=== PATIENT | female | born 1970 | race African-American/Black ===

== ENCOUNTER 2025-01-20 15:33 | Outpatient (REF) | payer OTHER, SELFPAY ==
--- OUTSIDE RECORDS SUMMARY | 2025-01-20 18:31 | XMS_ITS | Clinical Summary ---
Author Organization [facility] Address [address] [place] [address] Care Team Providers Care Grappler Name Role Phone Sameer Rowland MD Primary Care Provider Mina sampson Allergies No known active allergies Medications Medication Sig Dispensed Refills Start Date End Date Status traZODone (DESYREL) 50 MG tablet Take 0.5 tablets (25 mg total) by mouth every night at bedtime. 90 tablet 3 05/27/2018 Active ibuprofen (ADVIL,MOTRIN) 600 MG tabletIndications:Cervi robinson disc disorder with radiculopathy of cervicothoracic region Take 1 tablet (600 mg total) by mouth every 6 (six) hours as needed for pain. 270 tablet 3 09/30/2018 Active predniSONE (DELTASONE) tablet 10 mg Take 10 mg by mouth 2 (two) times a day. 0 Active Fluticasone-Salmeterol (ADVAIR DISKUS IN) Inhale into the lungs. 0 Active azithromycin (ZITHROMAX) 250 MG tablet Take 1 tablet (250 mg total) by mouth daily. 6 tablet 0 11/27/2018 Active oxyCODONE (ROXICODONE) 5 MG immediate release tablet Take 1 tablet (5 mg total) by mouth every 12 (twelve) hours as needed for pain. 60 tablet 0 12/05/2019 Active Active Problems Problem Noted Date Diagnosed Date Chronic bilateral low back pain with sciatica Cervical disc disorder with radiculopathy of cervicothoracic region 06/04/2017 Social History Tobacco Use Types Packs/Day Years Used Date Smoking Tobacco: Never Assessed Sex and Gender Information Value Date Recorded Sex Assigned at Not on file Gender Identity Not on file Sexual Orientation Not on file Last Filed Vital Signs Vital Sign Reading Time Taken Comments Blood Pressure 169/83 12/05/2019 9:41 AM EST rechecked BP Pulse 84 12/05/2019 9:41 AM EST Temperature 36.3 ??C (97.3 ??F) 12/05/2019 9 :30 AM EST Respiratory Rate - - Oxygen Saturation - - Inhaled Oxygen Concentration - - Weight 99 kg (218 lb 3.2 oz) 12/05/2019 9:30 AM EST Height 172.7 cm (5' 8 ) 12/05/2019 9:30 AM EST Body Mass Index 33.18 12/05/2019 9:30 AM EST Plan of Treatment Health Maintenance Due Date Last Done Comments Hepatitis B Vaccines (1 of 3 - 3-dose series) 1968 Hepatitis C Screening 1968 COVID-19 Vaccine (#1) 1968 Depression Screening 1980 Preventative Health Evaluation 1986 DTap / Tdap / Td (1 - Tdap) 1987 Cervical Cancer Screening (P ap Smear) 1989 Colon Cancer Screening (Colonoscopy) 2013 Breast Cancer Screening (Mammogram) 2018 Shingrix-Zoster Vaccine (1 of 2) 2018 Influenza Vaccine (#1) 2024 Pneumococcal Vaccine Aged Out No long er eligible based on patient's age to complete this topic RSV Ped < 20 months Aged Out No longe r eligible based on patient's age to complete this topic Care Teams Grappler Relationship Specialty Start Date End Date Sameer Rowland MD PCP - General Hematology and Oncology 06/04/17
--- OUTSIDE RECORDS SUMMARY | 2025-01-20 18:31 | XMS_ITS | Encounter Summary ---
Author Organization [facility] Address [address] [place] [address] Care Team Providers Care Global Category Manager Name Role Phone Yadi Hogan DO Primary Care Pro vider Reason for Visit * Reason Comments Follow-up Encounter Details Date Type Department Care Team (Late st Contact Info) Description 01/16/2025 10:15 AM EDT Office Visit [facility] Hematology Oncology [address] [place] [id number] Gregg Swan MD [address] [place] [address] Polycythemia (Primary Dx) Social History Tobacco Use Types Packs/Day Years Used Date Smoking Tobacco: Some Days Smokeless Tobacco: Never Alcohol Use Standard Drinks/Week Comments Yes 0 (1 standard drink = 0.6 oz pur e alcohol) Interpersonal Safety Answer Date Record ed Physical Abuse 08/21/2024 Verbal Abuse 08/21/2024 Comments Unknown Sex and Gender Information Value Date Recorded Sex Assigned at Not on file Legal Sex Female 11:44 AM EST Gender Identity Female 08/20/2024 2:00 PM EST Sexual Orientation Not on file documented as of this encounter Last Filed Vital Signs Vital Sign Reading Time Taken Comments Blood Pressure 149/66 01/16/2025 10:34 AM EDT Pulse - - Temperature 36.3 ??C (97.4 ??F) 01/16/2025 10:34 AM E DT Respiratory Rate - - Oxygen Saturation 95% 01/16/2025 10:34 AM EDT Inhaled Oxygen Concentration - - Weight 88.5 kg (195 lb) 01/16/2025 10:34 AM EDT Height - - Body Mass Index 30.54 09/17/2024 3:07 PM EST documented in this encounter Functional Status * Are you deaf or do you have serious difficulty hearing? Answer Date of Assessment Author No 08/20/2024 8:46 PM Mounika Zaldivar RN * Are you blind or do you have serious difficulty seeing, even when wearing glasses? Answer Date of Assessment Author No 08/20/2024 8:46 PM EST Mounika Baires RN * Do you have serious difficulty walking or climbing stairs? Answer Date of Assessment Author No 08/20/2024 8:46 PM Mounika Zaldivar RN * Do you have serious difficulty dressing or bathing? Answer Date of Assessment Author No 08/20/2024 8:46 PM Mounika Zaldivar RN * Because of a physical, mental, or emotional condition, do you have serious difficulty doing errandsalone such as visiting the doctor? Answer Date of Assessment Author No 08/20/2024 8:46 PM Mounika Zaldivar RN documented as of this encounter Mental Status * Because of a physical, mental, or emotional condition, do you have serious difficulty concentrating, remembering, or making decisions? (5 years old or older) Answer Entry Date Author No 08/20/2024 8:46 PM Mounika Zaldivar RN documented in this encounter Progress Notes * Gregg Swan MD - 01/16/2025 10:15 AM EDT ONC CANCER FOLLOW UP CHIEF COMPLAINT: Follow-up IDENTIFIER:Renae Babb is a 54 y.o. female. HPI: 54-year-old -Armenian female, who has more than [id number] smoking history, was smoking until couple months ago heavily, patient admitted to hospital with congestive heart failure and found to have hematocrit of more than 62%, I was involved and did some workup for myeloproliferative neoplasm, workup was basically unremarkable except for significantly suppressed erythropoietin level suggest myeloproliferative disease. ROS: She quit smoking 3 months ago She has been feeling much better She has increased appetite and gained weight She denies any chest pain chest pressure She denies any headache She denies any lower extremity swelling or discomfort PAST MEDICAL HISTORY: Patient Active Problem List Diagnosis Hypertensive emergency Acute pulmonary edema (CMS/HCC) NSTEMI (non-ST elevated myocardial infarction) (CMS/HCC) Acute respiratory failure, unspecified whether with hypoxia or hypercapnia Past Medical History: Diagnosis Date Herniated disc DX:Herniated disc SOCIAL HISTORY: She had more than [id number] smoking history, quit smoking 2 to 3 months ago She drinks socially She is single FAMILY HISTORY: Family History Problem Relation Name Age of Onset Colon cancer Mother 62.00 Breast cancer Neg Hx Uterine cancer Neg Hx Colon cancer Maternal Grandfather 60.00 unknown age Ovarian cancer Neg Hx Family Status Relation Name Status Mother (Not Specified) Neg Hx (Not Specified) MGF (Not Specified) No partnership data on file Current Outpatient Medications: amLODIPine (NORVASC) 2.5 mg tablet, Take 1 tablet (2.5 mg total) by mouth 1 (one) time each day., Disp: , Rfl: aspirin 81 mg EC tablet, Take 1 tablet (81 mg total) by mouth 1 (one) time each day., Disp: 30 tablet, Rfl: 0 atorvastatin (LIPITOR) 20 mg tablet, Take 1 tablet (20 mg total) by mouth 1 (one) time each day., Disp: 30 each, Rfl: 0 carvediloL (COREG) 6.25 mg tablet, Take 1 tablet (6.25 mg total) by mouth 2 (two) times a day with meals., Disp: 60 each, Rfl: 0 furosemide (LASIX) 40 mg tablet, Take 1 tablet (40 mg total) by mouth 1 (one) time each day., Disp:30 each, Rfl: 0 sacubitriL-valsartan (ENTRESTO) 24-26 mg per tablet, Take 1 tablet by mouth 2 (two) times a day., Disp: 60 tablet, Rfl: 1 No Known Allergies PHYSICAL EXAM: Visit Vitals BP (!) 149/66 (BP Location: Left arm, Patient Position: Sitting, BP Cuff Size: Adult) Temp 36.3 ??C (97.4 ??F) Wt 88.5 kg (195 lb) SpO2 95% BMI 30.54 kg/m?? Smoking Status Some Days BSA 2 m?? ECOG 0 APPEARANCE: Alert and oriented in no acute distress EYES: nonicteric sclera pink conjunctiva ORAL CAVITY: No erythema or exudates NECK: Neck supple, no significant adenopathy, HEART:S1 and S2 LUNG: clear to auscultation bilaterally LYMPH NODES: No palpable superficial adenopathy ABDOMEN: Obese, distended, soft, nontender and no splenomegaly organomegaly appreciated EXTREMITIES: No significant edema, erythema or tenderness LABS: Previously patient had JAK2 mutation test negative/normal CALR mutation test also negative/normal Last hematocrit 3 months ago was 57% IMPRESSION: 1. 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 PLAN: Labs today return to office in 1 to 2-week Gregg Swan MD documented in this encounter Plan of Treatment Upcoming Encounters Date Type Department Care Team (Late st Contact Info) Description 01/26/2025 3:45 PM EDT Office Visit [facility] Hematology Oncology [address] [place] [phone] Gregg Swan MD [address] [place] [address] documented as of this encounter Results * (ABNORMAL) Reticulocyte count (01/16/2025 11:03 AM EDT) Retic Ct Abs 0.150(H) 0.030 - 0.090 M/mcL LAB HEMETOLOGY METHOD 01/16/2025 12:00 PM EDT [facility] Retic Ct Pct 1.5 0.7 - 1.7 % LAB HEMETOLOGY METHOD 01/16/2025 12:00 PM EDT [facility] Immature Retic Fract 31.7(H) 2.3 - 15.9 % LAB HEMETOLOGY METHOD 01/16/2025 12:00 PM EDT [facility] Reticulocyte Hemoglobin 20.2(L) >29.0 pcg LAB HEMETOLOGY METHOD 01/16/2025 12:00 PM EDT [facility] Blood Venous blood specimen / Unknown Venipuncture / Unknown 01/16/2025 11:03 AM EDT 01/16/2025 12:00 PM EDT Gregg Swan MD LAB BLOOD ORDERABLES Final R esult [facility] [address] [place] [address], [place] [phone] * (ABNORMAL) Erythropoietin (01/16/2025 11:03 AM EDT) Erythropoietin 1.8(L) 2.6 - 18.5 mIU/mL 01/19/2025 2:37 PM EDT [facility] Comment: Test performed at [facility], [address] , [place], [place] ??[address] ? [phone] Rose Fabian MD, PhD - [facility] Blood Venous blood specimen / Unknown Venipuncture / Unknown 01/16/2025 11:03 AM EDT 01/16/2025 11:40 AM EDT Gregg Swan MD LAB BLOOD ORDERABLES Final R esult [facility] [address] [place] [address] documented in this encounter Visit Diagnoses Diagnosis Polycythemia- Primary Polycythemia, secondary documented in this encounter Historical Medications * This list may reflect changes made after this encounter. amLODIPine (NORVASC) 2.5 mg tablet Take 1 tablet (2.5 mg total) by mouth 1 (one) time each day. added in this encounter Care Teams Global Category Manager Relationship Specialty Start Date End Date Yadi Hogan DO [facility] [address] [place] [phone] PCP - General Internal Medicine 09/17/24 documented as of this encounter
--- OUTSIDE RECORDS SUMMARY | 2025-01-20 18:31 | XMS_ITS | Clinical Summary ---
Author Organization [facility] Address [address] [place] [address] Phone Care Team Providers Care Outsole Splicer Name Role Phone Yadi Hogan DO Primary Care Pro vider Allergies No known active allergies Medications carvediloL (COREG) 6.25 mg tablet Take 1 tablet (6.25 mg total) by mouth 2 (two) times a day with meals. 60 each 08/24/2024 5 Active furosemide (LASIX) 40 mg tablet Take 1 tablet (40 mg total) by mouth 1 (one) time each day. 30 each 08/25/2024 5 Active sacubitriL-valsa rtan (ENTRESTO) 24-26 mg per tabletIndication s:Acute respiratory failure, unspecified whether with hypoxia or hypercapnia,Hype rtensive emergency,Acute pulmonary edema (CMS/HCC),Cardio myopathy, unspecified type (CMS/HCC),NSTEMI (non-ST elevated myocardial infarction) (CMS/HCC) Take 1 tablet by mouth 2 (two) times a day. 60 tablet 1 08/24/2024 Active aspirin 81 mg EC tablet Take 1 tablet (81 mg total) by mouth 1 (one) time each day. 30 tablet 08/24/2024 5 Active atorvastatin (LIPITOR) 20 mg tablet Take 1 tablet (20 mg total) by mouth 1 (one) time each day. 30 each 08/24/2024 5 Active amLODIPine (NORVASC) 2.5 mg tablet Take 1 tablet (2.5 mg total) by mouth 1 (one) time each day. Active Active Problems Problem Noted Date Diagnosed Date Hypertensive emergency 08/20/2024 Acute pulmonary edema 08/20/2024 NSTEMI (non-ST elevated myocardial infarction) 1 10/20/2023 Acute respiratory failure, u nspecified whether with hypoxia or hypercapnia 08/20/2024 Encounters Date Type Department Care Team Description 01/16/2025 10:15 AM EDT Office Visit [facility] Hematology Oncology [address] [place] [phone] Gregg Swan MD Polycythemia (Primary Dx) 11/18/2024 5:15 PM EST - 11/18/2024 11:59 PM EST Hospital Encounter [facility] Xray [address] [place] [address] Pain in left knee Discharge Disposition: Home or Self Care 10/24/2024 Telephone [facility] [address] [facility] [address] [place] [address] Winter Cardoza NP No Show from Last 3 Months Surgical History Surgery Date Site/Laterality Comments SECTION PROCEDURE: HISTORICAL DELIVERY BREAST BIOPSY 01/04/15 Left PROCEDURE: BX BREAST; PERC NEEDLE CORE W/IMAG GUID; COMMENT: adenosis and moicrocysts Medical History Medical History Date Comments Herniated disc DX:Herniated dis c Family History Medical History Relation Name Comments Colon cancer Maternal Grandfather unknown age Colon cancer Mother Breast cancer Neg Hx Ovarian cancer Neg Hx Uterine cancer Neg Hx Relation Name Status Comments Maternal Grandfather Mother Social History Tobacco Use Types Packs/Day Years [...] PM EST Sexual Orientation Not on file Obstetrics History Last Filed Vital Signs Vital Sign Reading Time Taken Comments Blood Pressure 149/66 01/16/2025 10:34 AM EDT Pulse 65 09/17/2024 3:07 PM EST Temperature 36.3 ??C (97.4 ??F) 01/16/2025 10:34 AM E DT Respiratory Rate 19 08/24/2024 7:56 AM EST Oxygen Saturation 95% 01/16/2025 10:34 AM EDT Inhaled Oxygen Concentration - - Weight 88.5 kg (195 lb) 01/16/2025 10:34 AM EDT Height 170.2 cm (5' 7 ) 09/17/2024 3:07 PM EST Body Mass Index 30.54 09/17/2024 3:07 PM EST Plan of Treatment Upcoming Encounters Date Type Department Care Team (Late st Contact Info) Description 01/26/2025 3:45 PM EDT Office Visit [facility] Hematology Oncology [address] [place] [phone] Gregg Swan MD [address] [place] [address] Health Maintenance Due Date Last Done Comments Breast Cancer Screening 1968 DTaP,Tdap,and Td Vaccines (1 - Tdap) 1987 Hepatitis B Vaccines (1 of 3 - 19+ 3-dose series) 1987 Pneumococcal Vaccine: 50+ Years (1 of 2 - PCV) 1987 Pneumococcal Vaccine: Pediatrics (0 to 5 Years) and At-Risk Patients (6 to 64 Years) (1 of 2 - PCV) 1987 Zoster Vaccines (1 of 2) 1987 Cervical Cancer Screening: Pap Smear 12/21/2015 12/20/2012, 12/20/2012 Colorectal Cancer Screening: Colonoscopy 09/12/2022 Depression Screening 09/12/2022 HIV Screening 09/12/2022 Hepatitis C Screening 09/12/2022 Social Influencers of Health Screening 09/12/2022 COVID-19 Vaccine ( season) 2024 12/16/2021, 04/19/2021, 03/22/2021 Hypertension/CHF/CAD Annual BMP Blood Test 08/24/2025 08/24/2024, 08/23/2024, 08/22/2024, Additional history exists Cholesterol Screening (Lipid Panel) 08/24/2029 08/24/2024 Influenza Vaccine Completed 10/02/2024 HIB Vaccines Aged Out No longer eligi ble based on patient's age to complete this topic HPV Vaccines Aged Out No longer eligi ble based on patient's age to complete this topic Hepatitis A Vaccines Aged Out No long er eligible based on patient's age to complete this topic IPV Vaccines Aged Out No longer eligi ble based on patient's age to complete this topic MMR Vaccines Aged Out No longer eligi ble based on patient's age to complete this topic Meningococcal ACWY Vaccine Aged Out N o longer eligible based on patient's age to complete this topic Meningococcal B Vaccine Aged Out No l onger eligible based on patient's age to complete this topic RSV Immunization Patients Under 20 months Aged Out No longer eligible based on patient's age to complete this topic Varicella Vaccines Aged Out No longer eligible based on patient's age to complete this topic Procedures Procedure Name Priority Date/Time Associated Diagnosis Comments CBC WITH AUTO DIFFERENTIAL Routine 01/16/2025 11:03 AM EDT Polycythemia RETICULOCYTE COUNT Routine 01/16/2025 11 :03 AM EDT Polycythemia ERYTHROPOIETIN Routine 01/16/2025 11:03 AM EDT Polycythemia CBC AND DIFFERENTIAL Routine 01/16/2025 11:03 AM EDT Polycythemia XR KNEE 4+ VIEWS LEFT Routine 11/18/2024 5:28 PM EST Pain in left knee BASIC METABOLIC PANEL Routine 08/24/2024 6:37 AM EST LIPID PANEL WITH REFLEX TO DIRECT LDL Add-On 08/24/2024 6:37 AM EST HM HPV Routine 12/20/2012 from Last 3 Months or Most Recently Relevant to Health Maintenance Results * (ABNORMAL) CBC auto differential (01/16/2025 11:03 AM EDT) [facility] WBC 17.6(H) 4.8 - 10.8 K/mcL LAB HEMETOLOGY METHOD 01/16/2025 12:09 PM [facility] RBC 9.80(H) 3.80 - 4.80 M/mcL LAB HEMETOLOGY METHOD 01/16/2025 12:09 PM [facility] Hemoglobin 19.4(H) 11.5 - 16.0 g/dL LAB HEMETOLOGY METHOD 01/16/2025 12:09 PM [facility] Hematocrit 65.4(HH) 35.0 - 47.0 % LAB HEMETOLOGY METHOD 01/16/2025 12:09 PM [facility] MCV 66.2(L) 79.0 - 98.0 FL LAB HEMETOLOGY METHOD 01/16/2025 12:09 PM [facility] MCH 19.6(L) 27.0 - 32.0 pcg LAB HEMETOLOGY METHOD 01/16/2025 12:09 PM [facility] MCHC 29.7(L) 32.0 - 37.0 g/dL LAB HEMETOLOGY METHOD 01/16/2025 12:09 PM [facility] RDW 25.5(H) 11.0 - 15.0 % LAB HEMETOLOGY METHOD 01/16/2025 12:09 PM [facility] Platelets 252 130 - 400 K/mcL LAB HEMETOLOGY METHOD 01/16/2025 12:09 PM [facility] MPV LAB HEMETOLOGY METHOD 01/16/2025 12:09 PM [facility] Comment:Not Measured NRBC 0.2 <1.0 % LAB HEMETOLOGY METHOD 01/16/2025 12:09 PM [facility] NRBC Absolute 0.04 <0.10 K/mcL LAB HEMETOLOGY METHOD 01/16/2025 12:09 PM [facility] Neutrophils Relative 79.4 % LAB HEMETOLOGY METHOD 01/16/2025 12:09 PM [facility] Lymphocytes Relative 10.1 % LAB HEMETOLOGY METHOD 01/16/2025 12:09 PM [facility] Monocytes Relative 6.2 % LAB HEMETOLOGY METHOD 01/16/2025 12:09 PM [facility] Eosinophils Relative 2.3 % LAB HEMETOLOGY METHOD 01/16/2025 12:09 PM [facility] Basophils Relative 0.3 % LAB HEMETOLOGY METHOD 01/16/2025 12:09 PM [facility] Immature Granulocytes Relative 1.7 % LAB HEMETOLOGY METHOD 01/16/2025 12:09 PM [facility] Neutrophils Absolute 14.02(H) 1.50 - 7.00 K/mcL LAB HEMETOLOGY METHOD 01/16/2025 12:09 PM [facility] Lymphocytes Absolute 1.78 1.00 - 5.00 K/mcL LAB HEMETOLOGY METHOD 01/16/2025 12:09 PM [facility] Monocytes Absolute 1.10(H) 0.20 - 1.00 K/mcL LAB HEMETOLOGY METHOD 01/16/2025 12:09 PM [facility] Eosinophils Absolute 0.40 0.00 - 0.50 K/mcL LAB HEMETOLOGY METHOD 01/16/2025 12:09 PM [facility] Basophils Absolute 0.06 0.00 - 0.20 K/mcL LAB HEMETOLOGY METHOD 01/16/2025 12:09 PM [facility] Immature Granulocytes Absolute 0.30(H) 0.00 - 0.03 K/mcL LAB HEMETOLOGY METHOD 01/16/2025 12:09 PM EDT [facility] Blood Venous blood specimen / Unknown Venipuncture / Unknown 01/16/2025 11:03 AM EDT 01/16/2025 12:00 PM EDT Gregg Swan MD LAB BLOOD ORDERABLES Final R esult Performing Organization Address City/[facility]/ZIP Co de Phone Number [facility] [address] [place] [address], [place] [phone] * (ABNORMAL) Erythropoietin (01/16/2025 11:03 AM EDT) Erythropoietin 1.8(L) 2.6 - 18.5 mIU/mL 01/19/2025 2:37 PM EDT [facility] Comment: Test performed at [facility], [address], [place], [place] ??[address] ? [phone] Rose Fabian MD, PhD - Duplicate Maker Blood Venous blood specimen / Unknown Venipuncture / Unknown 01/16/2025 11:03 AM EDT 01/16/2025 11:40 AM EDT Gregg Swan MD LAB BLOOD ORDERABLES Final R esult Performing Organization Address City/[facility]/ZIP Co de Phone Number [facility] [address] [place] [address] * (ABNORMAL) Reticulocyte count (01/16/2025 11:03 AM EDT) Retic Ct Abs 0.150(H) 0.030 - 0.090 M/mcL LAB HEMETOLOGY METHOD 01/16/2025 12:00 PM EDT [facility] Retic Ct Pct 1.5 0.7 - 1.7 % LAB HEMETOLOGY METHOD 01/16/2025 12:00 PM EDT [facility] Immature Retic Fract 31.7(H) 2.3 - 15.9 % LAB HEMETOLOGY METHOD 01/16/2025 12:00 PM EDT [facility] Reticulocyte Hemoglobin 20.2(L) >29.0 pcg LAB HEMETOLOGY METHOD 01/16/2025 12:00 PM EDT [facility] Blood Venous blood specimen / Unknown Venipuncture / Unknown 01/16/2025 11:03 AM EDT 01/16/2025 12:00 PM EDT us Gregg Swan MD LAB BLOOD ORDERABLES Final R esult [facility] [address] [place] [address], * XR Knee 4+ Views Left (11/18/2024 5:28 PM EST) Anatomical Region Laterality Modality Lower Extremities, Knee Left Radiogra phic Imaging 11/19/2024 7:51 AM EST Impressions 11/19/2024 7:52 AM EST No acute findings. Mild osteoarthritis. Code 89897 -------- FINAL REPORT -------- Dictated By: Jeremias Becerra Dictated Date: 11/19/2024 07:51 ET Assigned Physician: Jeremias Becerra Reviewed and Electronically Signed By: Jeremias Becerra Signed Date: 11/19/2024 07:52 ET Workstation ID: [id number] Transcribed By: Self Edit Transcribed Date: 11/19/2024 07:51 ET Narrative 11/19/2024 7:52 AM EST HISTORY: The patient is a 54-year-old female with left knee pain for one one month following trauma. FINDINGS: AP, lateral, internal rotation, and external rotation views of the left knee are obtained. The study demonstrates no fracture or dislocation. There is mild narrowing of both the medial and lateral compartments of the femoral-tibial joint space and there is peaking of the medial tibial spine, consistent with mild osteoarthritis. No joint effusion or other soft tissue abnormality is seen. Procedure Note Jeremias Becerra MD - 11/19/2024 HISTORY: The patient is a 54-year-old female with left knee pain for oneone month following trauma. FINDINGS: AP, lateral, internal rotation, and external rotation views ofthe left knee are obtained. The study demonstrates no fracture ordislocation. There is mild narrowing of both the medial and lateralcompartments of the femoral-tibial joint space and there is peaking of themedial tibial spine, consistent with mild osteoarthritis. No jointeffusion or other soft tissue abnormality is seen. IMPRESSION: No acute findings. Mild osteoarthritis. Code 32900 -------- FINAL REPORT -------- Dictated By: Jeremias Becerra Dictated Date: 11/19/2024 07:51 ET Assigned Physician: Jeremias Becerra Reviewed and Electronically Signed By: Jeremias Becerra Signed Date: 11/19/2024 07:52 ET Workstation ID: [id number] Transcribed By: Self Edit Transcribed Date: 11/19/2024 07:51 ET aYdi Hogan DO IMG XR PROCEDURES Final Result * (ABNORMAL) Lipid panel with reflex to direct LDL (08/24/2024 6:37 AM EST) Cholesterol 163 0 - 200 mg/dL LAB CHEMISTRY METHOD 08/24/2024 12:03 PM [facility] Triglycerides 131 0 - 150 mg/dL LAB CHEMISTRY METHOD 08/24/2024 12:03 PM [facility] HDL 37(L) >=40 mg/dL LAB CHEMISTRY METHOD 08/24/2024 12:03 PM [facility] LDL Calculated 100 0 - 100 mg/dL LAB CHEMISTRY METHOD 08/24/2024 12:03 PM [facility] VLDL Cholesterol Stephen 26.2 mg/dL LAB CHEMISTRY METHOD 08/24/2024 12:03 PM [facility] Non HDL Chol. (LDL+VLDL) 126 <145 mg/dL LAB CHEMISTRY METHOD 08/24/2024 12:03 PM [facility] Chol/HDL Ratio 4.4 0.0 - 4.4 LAB CHEMISTRY METHOD 08/24/2024 12:03 PM [facility] Blood Venous blood specimen / Unknown Venipuncture / Unknown 08/24/2024 6:37 AM EST 08/24/2024 7:04 AM EST us Rhonda Rogers MD LAB BLOOD ORDERABLES Final Resu lt [facility] [address] [place] [address], [place] [phone] * (ABNORMAL) Basic metabolic panel (08/24/2024 6:37 AM EST) Sodium 140 133 - 145 mmol/L LAB CHEMISTRY METHOD 08/24/2024 8:11 AM [facility] Potassium 3.5 3.5 - 5.5 mmol/L LAB CHEMISTRY METHOD 08/24/2024 8:11 AM [facility] Chloride 102 96 - 110 mmol/L LAB CHEMISTRY METHOD 08/24/2024 8:11 AM [facility] CO2 29 21 - 32 mmol/L LAB CHEMISTRY METHOD 08/24/2024 8:11 AM [facility] Anion Gap 9 3 - 11 LAB CHEMISTRY METHOD 08/24/2024 8:11 AM [facility] Glucose 248(H) 70 - 100 mg/dL LAB CHEMISTRY METHOD 08/24/2024 8:11 AM [facility] BUN 27(H) 5 - 25 mg/dL LAB CHEMISTRY METHOD 08/24/2024 8:11 AM [facility] Creatinine 0.88 0.50 - 1.10 mg/dL LAB CHEMISTRY METHOD 08/24/2024 8:11 AM [facility] eGFR 77 >=60 mL/min/1. 73m2 LAB CHEMISTRY METHOD 08/24/2024 8:11 AM [facility] Comment:Calculation based on the??Chronic Kidney Disease Epidemiology Collaboration (CKD-EPI) equation refit??without adjustment for race. BUN/Creatinine Ratio 30.7 LAB CHEMISTRY METHOD 08/24/2024 8:11 AM EST [facility] Calcium 9.8 8.5 - 10.5 mg/dL LAB CHEMISTRY METHOD 08/24/2024 8:11 AM EST [facility] Blood Venous blood specimen / Unknown Venipuncture / Unknown 08/24/2024 6:37 AM EST 08/24/2024 7:04 AM EST Rhonda Rogers MD LAB BLOOD ORDERABLES Final Resu lt [facility] [address] [place] [address], * Cervical Cancer Screening: HPV (12/20/2012) Pathologist [facility] Cervical Cancer Screening: HPV no interpretation , abstracted Historical Provider HEALTH MAINTENANCE Final Result from Last 3 Months or Most Recently Relevant to Health Maintenance [place] [place] [address] Advance Directives * Full Code - Confirmed (Latest Code Status on File) Date Activated Date Inactivated Comments 08/21/2024 1:39 AM 08/24/2024 4:06 PM This code s tatus was ascertained in the following way: Code status discussion: discussion with patient To update the patient's code status, place a code status order. Do not modify or discontinue any currently active code status orders. * Full Code - Default Date Activated Date Inactivated Comments 08/20/2024 10:18 PM 08/21/2024 1:39 AM This is ord er is used when code status has not been discussed with the patient, or code status is otherwise unknown/unconfirmed To update the patient's code status, place a code status order. Do not modify or discontinue any currently active code status orders. Care Teams Outsole Splicer Relationship Specialty Start Date End Date Yadi Hogan DO [address] [id number] PCP - General Internal Medicine 09/17/24
== END 2025-01-20 15:34 | disposition home or self-care (01) ==
LOC: HO.BBR 15:33
PROVIDERS: Visit Provider Internal Medicine
DX: D75.1 Secondary polycythemia (principal)
CPT/HCPCS: 85018; 99195

== ENCOUNTER 2025-02-17 15:37 | Outpatient (REF) | payer OTHER, SELFPAY ==
--- OUTSIDE RECORDS SUMMARY | 2025-02-17 16:42 | XMS_ITS | Clinical Summary ---
Author Organization [facility] Address [address] [place] [address] Phone Care Team Providers Care Extrusion Manager Name Role Phone Yadi Hogan DO [...] failure, unspecified whether with hypoxia or hypercapnia (CMS/HCC V24, CMS/HCC V28),Hypertensiv e emergency,Acute pulmonary edema (CMS/HCC V24, CMS/HCC V28),Cardiomyopa thy, unspecified type (CMS/HCC V24, CMS/HCC V28),NSTEMI (non-ST elevated myocardial infarction) (CMS/HCC V24, CMS/HCC V28) Take 1 tablet by mouth 2 (two) times a day. 60 tablet 1 08/24/2024 Active aspirin 81 mg EC tablet Take 1 tablet (81 mg total) by mouth 1 (one) time each day. 30 tablet 08/24/2024 5 Active atorvastatin (LIPITOR) 20 mg tablet Take 1 tablet (20 mg total) by mouth 1 (one) time each day. 30 each 08/24/2024 Active amLODIPine (NORVASC) 2.5 mg tablet Take 1 tablet (2.5 mg total) by mouth 1 (one) time each day. Active Active Problems Problem Noted Date Diagnosed Date Hypertensive emergency 08/20/2024 Acute pulmonary edema ([facility] V24, [facility] V28) 08/20/2024 NSTEMI (non-ST elevated myoc ardial infarction) ([facility] V24, [facility] V28) 08/20/2024 Acute respiratory failure, u nspecified whether with hypoxia or hypercapnia ([facility] V24, [facility] V28) 08/20/2024 Encounters Date Type Department Care Team Description 01/26/2025 3:45 PM EDT Office Visit [facility] Hematology Oncology [address] [place] [address] Gregg Swan MD Primary polycythemia ([facility] V24, [facility] V28) (Primary Dx) 01/16/2025 10:15 AM EDT Office Visit [facility] Hematology Oncology [address] [place] [phone] Gregg Swan MD Polycythemia (Primary Dx) from Last 3 Months Surgical History Surgery [...] Sign Reading Time Taken Comments Blood Pressure 156/80 01/26/2025 3:45 PM EDT Pulse 61 01/26/2025 3:45 PM EDT Temperature 35.7 ??C (96.2 ??F) 01/26/2025 3:45 PM ED T Respiratory Rate 19 08/24/2024 7:56 AM EST Oxygen Saturation 95% 01/26/2025 3:45 PM EDT Inhaled Oxygen Concentration - - Weight 90.3 kg (199 lb) 01/26/2025 3:45 PM EDT Height 170.2 cm (5' 7 ) 09/17/2024 3:07 PM EST Body Mass Index 31.17 09/17/2024 3:07 PM EST Plan of Treatment Upcoming Encounters Date Type Department Care Team (Late st Contact Info) Description 04/27/2025 3:45 PM EDT Office Visit [facility] Hematology Oncology [address] [place] [phone] Gregg Swan MD [address] [place] [address] Health Maintenance Due Date Last Done Comments [...] Influencers of Health Screening 09/12/2022 COVID-19 Vaccine () 06/15/2024 12/16/2021, 04/19/2021, 03/22/2021 Hypertension/CHF/CAD Annual BMP Blood [...] DIFFERENTIAL Routine 01/16/2025 11:03 AM EDT Polycythemia BASIC METABOLIC PANEL Routine 08/24/2024 6:37 AM EST LIPID PANEL WITH REFLEX TO DIRECT LDL Add-On 08/24/2024 6:37 AM EST HM HPV Routine 12/20/2012 from Last 3 Months or Most Recently Relevant to Health Maintenance Results * (ABNORMAL) CBC auto differential (01/16/2025 11:03 AM EDT) [facility] WBC 17.6(H) 4.8 - 10.8 K/mcL LAB HEMETOLOGY METHOD 01/16/2025 12:09 PM [facility] RBC 9.80(H) 3.80 - 4.80 M/mcL LAB HEMETOLOGY METHOD 01/16/2025 12:09 PM [facility] Hemoglobin 19.4(H) 11.5 - 16.0 g/dL LAB HEMETOLOGY METHOD 01/16/2025 12:09 PM [facility] Hematocrit 65.4(HH) 35.0 - 47.0 % LAB HEMETOLOGY METHOD 01/16/2025 12:09 PM [facility] MCV 66.2(L) 79.0 - 98.0 FL LAB HEMETOLOGY METHOD 01/16/2025 12:09 PM [facility] MCH 19.6(L) 27.0 - 32.0 pcg LAB HEMETOLOGY METHOD 01/16/2025 12:09 PM [facility] MCHC 29.7(L) 32.0 - 37.0 g/dL LAB HEMETOLOGY METHOD 01/16/2025 12:09 PM [facility] RDW 25.5(H) 11.0 - 15.0 % LAB HEMETOLOGY METHOD 01/16/2025 12:09 PM [facility] Platelets 252 130 - 400 K/mcL LAB HEMETOLOGY METHOD 01/16/2025 12:09 PM [facility] MPV LAB HEMETOLOGY METHOD 01/16/2025 12:09 PM [facility] Comment:Not Measured NRBC 0.2 <1.0 % LAB HEMETOLOGY METHOD 01/16/2025 12:09 PM [facility] NRBC Absolute 0.04 <0.10 K/mcL LAB HEMETOLOGY METHOD 01/16/2025 12:09 PM [facility] Neutrophils Relative 79.4 % LAB HEMETOLOGY METHOD 01/16/2025 12:09 PM [facility] Lymphocytes Relative 10.1 % LAB HEMETOLOGY METHOD 01/16/2025 12:09 PM [facility] Monocytes Relative 6.2 % LAB HEMETOLOGY METHOD 01/16/2025 12:09 PM [facility] Eosinophils Relative 2.3 % LAB HEMETOLOGY METHOD 01/16/2025 12:09 PM [facility] Basophils Relative 0.3 % LAB HEMETOLOGY METHOD 01/16/2025 12:09 PM [facility] Immature Granulocytes Relative 1.7 % LAB HEMETOLOGY METHOD 01/16/2025 12:09 PM [facility] Neutrophils Absolute 14.02(H) 1.50 - 7.00 K/mcL LAB HEMETOLOGY METHOD 01/16/2025 12:09 PM [facility] Lymphocytes Absolute 1.78 1.00 - 5.00 K/mcL LAB HEMETOLOGY METHOD 01/16/2025 12:09 PM [facility] Monocytes Absolute 1.10(H) 0.20 - 1.00 K/mcL LAB HEMETOLOGY METHOD 01/16/2025 12:09 PM [facility] Eosinophils Absolute 0.40 0.00 - 0.50 K/mcL LAB HEMETOLOGY METHOD 01/16/2025 12:09 PM [facility] Basophils Absolute 0.06 0.00 - 0.20 K/mcL LAB HEMETOLOGY METHOD 01/16/2025 12:09 PM [facility] Immature Granulocytes Absolute 0.30(H) 0.00 - 0.03 K/mcL LAB HEMETOLOGY METHOD 01/16/2025 12:09 PM EDT [facility] Blood Venous blood specimen / Unknown Venipuncture / Unknown 01/16/2025 11:03 AM EDT 01/16/2025 12:00 PM EDT Gregg Swan MD LAB BLOOD ORDERABLES Final R esult Performing Organization Address City/[facility]/ZIP Co de Phone Number [facility] [address] [place] [address], * (ABNORMAL) Erythropoietin (01/16/2025 11:03 AM EDT) Erythropoietin 1.8(L) 2.6 - 18.5 mIU/mL 01/19/2025 2:37 PM EDT [facility] Comment: Test performed at [facility], [address] , [place], [place] ??[address] ? [phone] Rose Fabian MD, PhD - Geodetic Surveyor Blood Venous blood specimen / Unknown Venipuncture / Unknown 01/16/2025 11:03 AM EDT 01/16/2025 11:40 AM EDT Gregg Swan MD LAB BLOOD ORDERABLES Final R esult Performing Organization Address City/[facility]/ZIP Co de Phone Number [facility] [address] [place] [address] * (ABNORMAL) Reticulocyte count (01/16/2025 11:03 AM EDT) Retic Ct Abs 0.150(H) 0.030 - 0.090 M/mcL LAB HEMETOLOGY METHOD 01/16/2025 12:00 PM EDT [facility] Retic Ct Pct 1.5 0.7 - 1.7 % LAB HEMETOLOGY METHOD 01/16/2025 12:00 PM EDT [facility] Immature Retic Fract 31.7(H) 2.3 - 15.9 % LAB HEMETOLOGY METHOD 01/16/2025 12:00 PM EDT [facility] Reticulocyte Hemoglobin 20.2(L) >29.0 pcg LAB HEMETOLOGY METHOD 01/16/2025 12:00 PM EDT [facility] Blood Venous blood specimen / Unknown Venipuncture / Unknown 01/16/2025 11:03 AM EDT 01/16/2025 12:00 PM EDT us Gregg Swan MD LAB BLOOD ORDERABLES Final R esult [facility] [address] [place] [address], [place] [phone] * (ABNORMAL) Lipid panel with reflex to direct LDL (08/24/2024 6:37 AM EST) Cholesterol 163 0 - 200 mg/dL LAB CHEMISTRY METHOD 08/24/2024 12:03 PM [facility] Triglycerides 131 0 - 150 mg/dL LAB CHEMISTRY METHOD 08/24/2024 12:03 PM [facility] HDL 37(L) >=40 mg/dL LAB CHEMISTRY METHOD 08/24/2024 12:03 PM [facility] LDL Calculated 100 0 - 100 mg/dL LAB CHEMISTRY METHOD 08/24/2024 12:03 PM [facility] VLDL Cholesterol Stephen 26.2 mg/dL LAB CHEMISTRY METHOD 08/24/2024 12:03 PM [facility] Non HDL Chol. (LDL+VLDL) 126 <145 mg/dL LAB CHEMISTRY METHOD 08/24/2024 12:03 PM [facility] Chol/HDL Ratio 4.4 0.0 - 4.4 LAB CHEMISTRY METHOD 08/24/2024 12:03 PM [facility] Blood Venous blood specimen / Unknown Venipuncture / Unknown 08/24/2024 6:37 AM EST 08/24/2024 7:04 AM EST us Rhonda Rogers MD LAB BLOOD ORDERABLES Final Resu lt [facility] [address] [place] [address], [place] [phone] * (ABNORMAL) Basic metabolic panel (08/24/2024 6:37 AM EST) Sodium 140 133 - 145 mmol/L LAB CHEMISTRY METHOD 08/24/2024 8:11 AM [facility] Potassium 3.5 3.5 - 5.5 mmol/L LAB CHEMISTRY METHOD 08/24/2024 8:11 AM [facility] Chloride 102 96 - 110 mmol/L LAB CHEMISTRY METHOD 08/24/2024 8:11 AM [facility] CO2 29 21 - 32 mmol/L LAB CHEMISTRY METHOD 08/24/2024 8:11 AM [facility] Anion Gap 9 3 - 11 LAB CHEMISTRY METHOD 08/24/2024 8:11 AM [facility] Glucose 248(H) 70 - 100 mg/dL LAB CHEMISTRY METHOD 08/24/2024 8:11 AM [facility] BUN 27(H) 5 - 25 mg/dL LAB CHEMISTRY METHOD 08/24/2024 8:11 AM [facility] Creatinine 0.88 0.50 - 1.10 mg/dL LAB CHEMISTRY METHOD 08/24/2024 8:11 AM [facility] eGFR 77 >=60 mL/min/1. 73m2 LAB CHEMISTRY METHOD 08/24/2024 8:11 AM [facility] Comment:Calculation based on the??Chronic Kidney Disease Epidemiology Collaboration (CKD-EPI) equation refit??without adjustment for race. BUN/Creatinine Ratio 30.7 LAB CHEMISTRY METHOD 08/24/2024 8:11 AM [facility] Calcium 9.8 8.5 - 10.5 mg/dL LAB CHEMISTRY METHOD 08/24/2024 8:11 AM EST [facility] Blood Venous blood specimen / Unknown Venipuncture / Unknown 08/24/2024 6:37 AM EST 08/24/2024 7:04 AM EST Rhonda Rogers MD LAB BLOOD ORDERABLES Final Resu lt [facility] [address] [place] [address], [place] [phone] * Cervical Cancer Screening: HPV (12/20/2012) Pathologist [facility] Cervical Cancer Screening: HPV no interpretation , abstracted Historical Provider HEALTH MAINTENANCE Final Result from Last 3 Months or Most Recently Relevant to Health Maintenance Insurance [facility] Advance Directives * Full Code - Confirmed [...] currently active code status orders. Care Teams Extrusion Manager Relationship Specialty Start Date End Date Yadi Hogan DO [facility] [address] [place] [phone] PCP - General Internal Medicine 09/17/24
--- OUTSIDE RECORDS SUMMARY | 2025-02-17 16:42 | XMS_ITS | Clinical Summary ---
Author Organization [facility] Address [address] [place] [address] Care Team Providers Care Hospice Care Sales Consultant Name Role Phone Sameer Rowland MD Primary [...] age to complete this topic Care Teams Hospice Care Sales Consultant Relationship Specialty Start Date End Date Sameer Rowland MD PCP - General Hematology and Oncology 06/04/17
== END 2025-02-17 15:38 | disposition home or self-care (01) ==
LOC: HO.BBR 15:37
PROVIDERS: Visit Provider Internal Medicine
DX: D45 Polycythemia vera (principal)
CPT/HCPCS: 85018; 99195

== ENCOUNTER 2025-03-23 15:42 | Outpatient (REF) | payer OTHER, SELFPAY ==
--- OUTSIDE RECORDS SUMMARY | 2025-03-23 17:23 | XMS_ITS | Clinical Summary ---
Author Organization [facility] Address [address] [place] [address] Phone Care Team Providers Care Kiln Firer Name Role Phone Yadi Hogan DO Primary [...] Date Hypertensive emergency 08/20/2024 Acute pulmonary edema ([facility] V24, [facility] V28) 08/20/2024 NSTEMI (non-ST elevated myoc ardial infarction) ([facility] V24, [facility] V28) 08/20/2024 Acute respiratory failure, u nspecified whether with hypoxia or hypercapnia ([facility] V24, [facility] V28) 08/20/2024 Encounters Date Type Department Care Team Description 01/26/2025 3:45 PM EDT Office Visit [facility] Hematology Oncology [address] [place] [address] Gregg Swan MD Primary polycythemia ([facility] V24, [facility] V28) (Primary Dx) 01/16/2025 10:15 AM EDT Office Visit [facility] Hematology Oncology [address] [place] [phone] Gregg Swan MD Polycythemia (Primary Dx) from [...] Description 04/27/2025 3:45 PM EDT Office Visit [facility] Hematology Oncology [address] [place] [phone] Gregg Swan MD [address] [place] [address] Health Maintenance Due Date Last Done Comments [...] CBC auto differential (01/16/2025 11:03 AM EDT) [facility] WBC 17.6(H) 4.8 - 10.8 K/mcL LAB HEMETOLOGY METHOD 01/16/2025 12:09 PM [facility] RBC 9.80(H) 3.80 - 4.80 M/mcL LAB HEMETOLOGY METHOD 01/16/2025 12:09 PM [facility] Hemoglobin 19.4(H) 11.5 - 16.0 g/dL LAB HEMETOLOGY METHOD 01/16/2025 12:09 PM [facility] Hematocrit 65.4(HH) 35.0 - 47.0 % LAB HEMETOLOGY METHOD 01/16/2025 12:09 PM [facility] MCV 66.2(L) 79.0 - 98.0 FL LAB HEMETOLOGY METHOD 01/16/2025 12:09 PM [facility] MCH 19.6(L) 27.0 - 32.0 pcg LAB HEMETOLOGY METHOD 01/16/2025 12:09 PM [facility] MCHC 29.7(L) 32.0 - 37.0 g/dL LAB HEMETOLOGY METHOD 01/16/2025 12:09 PM [facility] RDW 25.5(H) 11.0 - 15.0 % LAB HEMETOLOGY METHOD 01/16/2025 12:09 PM [facility] Platelets 252 130 - 400 K/mcL LAB HEMETOLOGY METHOD 01/16/2025 12:09 PM [facility] MPV LAB HEMETOLOGY METHOD 01/16/2025 12:09 PM [facility] Comment:Not Measured NRBC 0.2 <1.0 % LAB HEMETOLOGY METHOD 01/16/2025 12:09 PM [facility] NRBC Absolute 0.04 <0.10 K/mcL LAB HEMETOLOGY METHOD 01/16/2025 12:09 PM [facility] Neutrophils Relative 79.4 % LAB HEMETOLOGY METHOD 01/16/2025 12:09 PM [facility] Lymphocytes Relative 10.1 % LAB HEMETOLOGY METHOD 01/16/2025 12:09 PM [facility] Monocytes Relative 6.2 % LAB HEMETOLOGY METHOD 01/16/2025 12:09 PM [facility] Eosinophils Relative 2.3 % LAB HEMETOLOGY METHOD 01/16/2025 12:09 PM [facility] Basophils Relative 0.3 % LAB HEMETOLOGY METHOD 01/16/2025 12:09 PM [facility] Immature Granulocytes Relative 1.7 % LAB HEMETOLOGY METHOD 01/16/2025 12:09 PM [facility] Neutrophils Absolute 14.02(H) 1.50 - 7.00 K/mcL LAB HEMETOLOGY METHOD 01/16/2025 12:09 PM [facility] Lymphocytes Absolute 1.78 1.00 - 5.00 K/mcL LAB HEMETOLOGY METHOD 01/16/2025 12:09 PM [facility] Monocytes Absolute 1.10(H) 0.20 - 1.00 K/mcL LAB HEMETOLOGY METHOD 01/16/2025 12:09 PM [facility] Eosinophils Absolute 0.40 0.00 - 0.50 K/mcL LAB HEMETOLOGY METHOD 01/16/2025 12:09 PM [facility] Basophils Absolute 0.06 0.00 - 0.20 K/mcL LAB HEMETOLOGY METHOD 01/16/2025 12:09 PM [facility] Immature Granulocytes Absolute 0.30(H) 0.00 - 0.03 K/mcL LAB HEMETOLOGY METHOD 01/16/2025 12:09 PM [facility] Blood Venous blood specimen / Unknown Venipuncture / Unknown 01/16/2025 11:03 AM EDT 01/16/2025 12:00 PM EDT Gregg Swan MD LAB BLOOD ORDERABLES Final R esult Performing Organization Address City/[facility]/ZIP Co de Phone Number [facility] [address] [place] [address], [place] [phone] * (ABNORMAL) Erythropoietin (01/16/2025 11:03 AM EDT) Erythropoietin 1.8(L) 2.6 - 18.5 mIU/mL 01/19/2025 2:37 PM EDT [facility] Comment: Test performed at [facility], [address] , [place], [place] ??[address] ? [phone] Rose Fabian MD, PhD - Mining Teacher Blood Venous blood specimen / Unknown Venipuncture / Unknown 01/16/2025 11:03 AM EDT 01/16/2025 11:40 AM EDT Gregg Swan MD LAB BLOOD ORDERABLES Final R esult Performing Organization Address City/[facility]/ZIP Co de Phone Number [facility] [address] [place] [address] * (ABNORMAL) Reticulocyte count (01/16/2025 11:03 AM EDT) Retic Ct Abs 0.150(H) 0.030 - 0.090 M/mcL LAB HEMETOLOGY METHOD 01/16/2025 12:00 PM EDT [facility] Retic Ct Pct 1.5 0.7 - 1.7 % LAB HEMETOLOGY METHOD 01/16/2025 12:00 PM EDT [facility] Immature Retic Fract 31.7(H) 2.3 - 15.9 % LAB HEMETOLOGY METHOD 01/16/2025 12:00 PM EDT [facility] Reticulocyte Hemoglobin 20.2(L) >29.0 pcg LAB HEMETOLOGY METHOD 01/16/2025 12:00 PM EDT [facility] Blood Venous blood specimen / Unknown Venipuncture / Unknown 01/16/2025 11:03 AM EDT 01/16/2025 12:00 PM EDT Gregg John Swan MD LAB BLOOD ORDERABLES Final R esult [facility] [address] [place] [address], [place] [phone] * (ABNORMAL) Lipid panel with reflex to direct LDL (08/24/2024 6:37 AM EST) Cholesterol 163 0 - 200 mg/dL LAB CHEMISTRY METHOD 08/24/2024 12:03 PM [facility] Triglycerides 131 0 - 150 mg/dL LAB CHEMISTRY METHOD 08/24/2024 12:03 PM [facility] HDL 37(L) >=40 mg/dL LAB CHEMISTRY METHOD 08/24/2024 12:03 PM [facility] LDL Calculated 100 0 - 100 mg/dL LAB CHEMISTRY METHOD 08/24/2024 12:03 PM [facility] VLDL Cholesterol Stephen 26.2 mg/dL LAB CHEMISTRY METHOD 08/24/2024 12:03 PM [facility] Non HDL Chol. (LDL+VLDL) 126 <145 mg/dL LAB CHEMISTRY METHOD 08/24/2024 12:03 PM [facility] Chol/HDL Ratio 4.4 0.0 - 4.4 LAB CHEMISTRY METHOD 08/24/2024 12:03 PM [facility] Blood Venous blood specimen / Unknown Venipuncture / Unknown 08/24/2024 6:37 AM EST 08/24/2024 7:04 AM EST us Rhonda Rogers MD LAB BLOOD ORDERABLES Final Resu lt [facility] [address] [place] [address], [place] [phone] * (ABNORMAL) Basic metabolic panel (08/24/2024 6:37 AM EST) Sodium 140 133 - 145 mmol/L LAB CHEMISTRY METHOD 08/24/2024 8:11 AM [facility] Potassium 3.5 3.5 - 5.5 mmol/L LAB CHEMISTRY METHOD 08/24/2024 8:11 AM [facility] Chloride 102 96 - 110 mmol/L LAB CHEMISTRY METHOD 08/24/2024 8:11 AM [facility] CO2 29 21 - 32 mmol/L LAB CHEMISTRY METHOD 08/24/2024 8:11 AM [facility] Anion Gap 9 3 - 11 LAB CHEMISTRY METHOD 08/24/2024 8:11 AM [facility] Glucose 248(H) 70 - 100 mg/dL LAB CHEMISTRY METHOD 08/24/2024 8:11 AM [facility] BUN 27(H) 5 - 25 mg/dL LAB CHEMISTRY METHOD 08/24/2024 8:11 AM [facility] Creatinine 0.88 0.50 - 1.10 mg/dL LAB CHEMISTRY METHOD 08/24/2024 8:11 AM [facility] eGFR 77 >=60 mL/min/1. 73m2 LAB CHEMISTRY METHOD 08/24/2024 8:11 AM [facility] Comment:Calculation based on the??Chronic Kidney Disease Epidemiology Collaboration (CKD-EPI) equation refit??without adjustment for race. BUN/Creatinine Ratio 30.7 LAB CHEMISTRY METHOD 08/24/2024 8:11 AM [facility] Calcium 9.8 8.5 - 10.5 mg/dL LAB CHEMISTRY METHOD 08/24/2024 8:11 AM EST [facility] Blood Venous blood specimen / Unknown Venipuncture / Unknown 08/24/2024 6:37 AM EST 08/24/2024 7:04 AM EST Rhonda Rogers MD LAB BLOOD ORDERABLES Final Resu lt [facility] [address] [place] [address], [place] [phone] * Cervical Cancer Screening: HPV (12/20/2012) Cervical Cancer Screening: HPV no interpretation , abstracted Historical Provider HEALTH MAINTENANCE Final Result from Last 3 Months or Most Recently Relevant to Health Maintenance Insurance [facility] Advance Directives * Full Code - [...] currently active code status orders. Care Teams Kiln Firer Relationship Specialty Start Date End Date Yadi Hogan DO [facility] [address] [place] [phone] PCP - General Internal Medicine 09/17/24
== END 2025-03-23 15:43 | disposition home or self-care (01) ==
LOC: HO.BBR 15:42
PROVIDERS: Visit Provider Internal Medicine
DX: D75.1 Secondary polycythemia (principal)
CPT/HCPCS: 85014; 85018; 99195

== ENCOUNTER 2025-04-23 15:31 | Outpatient (REF) | payer OTHER, SELFPAY ==
--- OUTSIDE RECORDS SUMMARY | 2025-04-23 15:33 | XMS_ITS | Clinical Summary ---
Author Organization [facility] Address [address] [place] [address] Care Team Providers Care Hazardous Material Specialist Name Role Phone Sameer Rowland MD Primary [...] 84 12/05/2019 9:41 AM EST Temperature 36.3 C (97.3 F) 12/05/2019 9:30 AM EST Respiratory Rate - - Oxygen [...] (1 of 2) 2018 Influenza Vaccine (#1) 2025 Pneumococcal Vaccine Aged Out No long er eligible based on patient's age to complete this topic RSV Ped < 20 months Aged Out No longe r eligible based on patient's age to complete this topic Care Teams Hazardous Material Specialist Relationship Specialty Start Date End Date Sameer Rowland MD PCP - General Hematology and Oncology 06/04/17
--- OUTSIDE RECORDS SUMMARY | 2025-04-23 15:33 | XMS_ITS | Clinical Summary ---
Author Organization [facility] Address [address] [place] [address] Phone Care Team Providers Care Restaurant Supervisor Name Role Phone Yadi Hogan DO Primary [...] Date Hypertensive emergency 08/20/2024 Acute pulmonary edema ([facility] V24, [facility] V28) 08/20/2024 NSTEMI (non-ST elevated myoc ardial infarction) ([facility] V24, [facility] V28) 08/20/2024 Acute respiratory failure, u nspecified whether with hypoxia or hypercapnia ([facility] V24, [facility] V28) 08/20/2024 Encounters Date Type Department Care Team Description 01/26/2025 3:45 PM EDT Office Visit [facility] Hematology Oncology [address] [place] [phone] Gregg Swan MD Primary polycythemia ([facility] V24, [facility] V28) (Primary Dx) from Last 3 Months Surgical [...] 61 01/26/2025 3:45 PM EDT Temperature 35.7 C (96.2 F) 01/26/2025 3:45 PM EDT Respiratory Rate 19 08/24/2024 7:56 AM EST [...] Description 04/27/2025 3:45 PM EDT Office Visit [facility] Hematology Oncology [address] [place] [address] Gregg Swan MD [address] [place] [address] Health Maintenance Due Date Last Done Comments Breast Cancer Screening 1968 DTaP,Tdap,and Td Vaccines (1 - Tdap) 1987 Hepatitis B Vaccines (1 of 3 - 19+ 3-dose series) 1987 Pneumococcal Vaccine: 50+ Years (1 of 2 - PCV) 1987 Pneumococcal Vaccine: Pediatrics (0 to 5 Years) and At-Risk Patients (6 to 49 Years) (1 of 2 - PCV) 1987 Zoster Vaccines (1 of 2) 1987 Cervical Cancer Screening: Pap Smear 12/21/2015 12/20/2012, 12/20/2012 Colorectal Cancer Screening: Colonoscopy 09/12/2022 Depression Screening 09/12/2022 HIV Screening 09/12/2022 Hepatitis C Screening 09/12/2022 Social Influencers of Health Screening 09/12/2022 COVID-19 Vaccine ( season) 2024 12/16/2021, 04/19/2021, 03/22/2021 Influenza Vaccine (#1) 2025 10/02/2024 Hypertension/CHF/CAD Annual BMP Blood Test 08/24/2025 08/24/2024, 08/23/2024, 08/22/2024, Additional history exists Cholesterol Screening (Lipid Panel) 08/24/2029 08/24/2024 HIB Vaccines Aged Out No longer eligi [...] Procedure Name Priority Date/Time Associated Diagnosis Comments BASIC METABOLIC PANEL Routine 08/24/2024 6:37 AM EST LIPID PANEL WITH REFLEX TO DIRECT LDL Add-On 08/24/2024 6:37 AM EST HPV Routine 12/20/2012 from Last 3 Months or Most Recently Relevant to Health Maintenance Results * (ABNORMAL) Lipid panel with reflex to direct LDL (08/24/2024 6:37 AM EST) Cholesterol 163 0 - 200 mg/dL LAB CHEMISTRY METHOD 08/24/2024 12:03 PM [facility] Triglycerides 131 0 - 150 mg/dL LAB CHEMISTRY METHOD 08/24/2024 12:03 PM [facility] HDL 37(L) >=40 mg/dL LAB CHEMISTRY METHOD 08/24/2024 12:03 PM [facility] LDL Calculated 100 0 - 100 mg/dL LAB CHEMISTRY METHOD 08/24/2024 12:03 PM [facility] VLDL Cholesterol Stephen 26.2 mg/dL LAB CHEMISTRY METHOD 08/24/2024 12:03 PM [facility] Non HDL Chol. (LDL+VLDL) 126 <145 mg/dL LAB CHEMISTRY METHOD 08/24/2024 12:03 PM [facility] Chol/HDL Ratio 4.4 0.0 - 4.4 LAB CHEMISTRY METHOD 08/24/2024 12:03 PM [facility] Blood Venous blood specimen / Unknown Venipuncture / Unknown 08/24/2024 6:37 AM EST 08/24/2024 7:04 AM EST us Rhonda Rogers MD LAB BLOOD ORDERABLES Final Resu lt [facility] [address] [place] [address], * (ABNORMAL) Basic metabolic panel (08/24/2024 6:37 AM EST) Sodium 140 133 - 145 mmol/L LAB CHEMISTRY METHOD 08/24/2024 8:11 AM [facility] Potassium 3.5 3.5 - 5.5 mmol/L LAB CHEMISTRY METHOD 08/24/2024 8:11 AM [facility] Chloride 102 96 - 110 mmol/L LAB CHEMISTRY METHOD 08/24/2024 8:11 AM [facility] CO2 29 21 - 32 mmol/L LAB CHEMISTRY METHOD 08/24/2024 8:11 AM [facility] Anion Gap 9 3 - 11 LAB CHEMISTRY METHOD 08/24/2024 8:11 AM [facility] Glucose 248(H) 70 - 100 mg/dL LAB CHEMISTRY METHOD 08/24/2024 8:11 AM [facility] BUN 27(H) 5 - 25 mg/dL LAB CHEMISTRY METHOD 08/24/2024 8:11 AM [facility] Creatinine 0.88 0.50 - 1.10 mg/dL LAB CHEMISTRY METHOD 08/24/2024 8:11 AM EST [facility] eGFR 77 >=60 mL/min/1. 73m2 LAB CHEMISTRY METHOD 08/24/2024 8:11 AM EST [facility] Comment:Calculation based on the Chronic Kidney Disease Epidemiology Collaboration (CKD-EPI) equation refit without adjustment for race. BUN/Creatinine Ratio 30.7 LAB CHEMISTRY METHOD 08/24/2024 8:11 AM [facility] Calcium 9.8 8.5 - 10.5 mg/dL LAB CHEMISTRY METHOD 08/24/2024 8:11 AM [facility] Blood Venous blood specimen / Unknown Venipuncture / Unknown 08/24/2024 6:37 AM EST 08/24/2024 7:04 AM EST Rhonda Rogers MD LAB BLOOD ORDERABLES Final Resu lt [facility] [address] [place] [address], * Cervical Cancer Screening: HPV (12/20/2012) Pathologist [facility] Cervical Cancer Screening: HPV no interpretation , abstracted Nuno Provider HEALTH MAINTENANCE Final Result from Last 3 Months or Most Recently Relevant to Health Maintenance [place] [address] [place] [address] Advance Directives * Full Code - Confirmed [...] currently active code status orders. Care Teams Restaurant Supervisor Relationship Specialty Start Date End Date Yadi Hogan DO [facility] [address] [place] [phone] PCP - General Internal Medicine 09/17/24
== END 2025-04-23 15:32 | disposition home or self-care (01) ==
LOC: HO.BBR 15:31
PROVIDERS: PCP Family Medicine; Visit Provider Internal Medicine
DX: D75.1 Secondary polycythemia (principal)
CPT/HCPCS: 85014; 85018; 99195

== ENCOUNTER 2025-05-27 09:51 | Outpatient (REF) | payer OTHER, SELFPAY ==
--- OUTSIDE RECORDS SUMMARY | 2025-05-20 09:23 | XMS_ITS ---
Author Organization [facility] Address [address] [place] [phone] Care Team Providers Care Lock Assembler Name Role Phone ELOISA SMITH Primary Care Provide r [phone] REASON FOR VISIT snd labs SOCIAL HISTORY Sex Assigned At : Social History Observation Description Sex Assigned At Female Encounters Encounter Location Date Provider Diagnosis [address] [address] 05/20/2025 ELOISA SMITH PLAN OF TREATMENT Next Appt Details Provider Name:ELOISA CARUSO, 10/07/2025 11:30:00 AM, [address] [place], [address],
--- OUTSIDE RECORDS SUMMARY | 2025-05-27 10:27 | XMS_ITS | Clinical Summary ---
Author Organization [facility] Address [address] [place] [address] Phone Care Team Providers Care Calibration Technician Name Role Phone Yadi Hogan DO Primary [...] edema ([facility] V24, [facility] V28) 08/20/2024 NSTEMI (non-ST elevated myoc ardial infarction) ([facility] V24, [facility] V28) 08/20/2024 Acute respiratory failure, u nspecified whether with hypoxia or hypercapnia ([facility] V24, [facility] V28) 08/20/2024 Surgical History Surgery Date Site/Laterality Comments SECTION [...] Care Team (Late st Contact Info) Description 05/27/2025 3:45 PM EDT Office Visit [facility] Hematology Oncology [address] [place] [phone] Gregg Swan MD [address] [place] [address] Health Maintenance Due Date Last Done Comments Breast Cancer Screening 1968 DTaP,Tdap,and Td Vaccines (1 - Tdap) 1987 Hepatitis B Vaccines (1 of 3 - 19+ 3-dose series) 1987 Pneumococcal Vaccine: 50+ Years (1 of 2 - PCV) 1987 Zoster Vaccines (1 of 2) 1987 Cervical Cancer Screening: Pap Smear 12/21/2015 12/20/2012, 12/20/2012 Colorectal Cancer Screening: Colonoscopy 09/12/2022 HIV Screening 09/12/2022 Hepatitis C Screening 09/12/2022 Social Influencers of Health Screening 09/12/2022 COVID-19 Vaccine ( season) 2024 12/16/2021, 04/19/2021, 03/22/2021 Depression Screening 10/15/2024 Influenza Vaccine (#1) 2025 10/02/2024 Hypertension/CHF/CAD Annual [...] mg/dL LAB CHEMISTRY METHOD 08/24/2024 12:03 PM [facility] Triglycerides 131 0 - 150 mg/dL LAB CHEMISTRY METHOD 08/24/2024 12:03 PM [facility] HDL 37(L) >=40 mg/dL LAB CHEMISTRY METHOD 08/24/2024 12:03 PM [facility] LDL Calculated 100 0 - 100 mg/dL LAB CHEMISTRY METHOD 08/24/2024 12:03 PM [facility] VLDL Cholesterol Stephen 26.2 mg/dL LAB CHEMISTRY METHOD 08/24/2024 12:03 PM [facility] Non HDL Chol. (LDL+VLDL) 126 <145 mg/dL LAB CHEMISTRY METHOD 08/24/2024 12:03 PM [facility] Chol/HDL Ratio 4.4 0.0 - 4.4 LAB CHEMISTRY METHOD 08/24/2024 12:03 PM [facility] Blood Venous blood specimen / Unknown Venipuncture / Unknown 08/24/2024 6:37 AM EST 08/24/2024 7:04 AM EST us Rhonda Rogers MD LAB BLOOD ORDERABLES Final Resu lt [facility] [address] [place] [address], [place] [phone] * (ABNORMAL) Basic metabolic panel (08/24/2024 6:37 AM EST) Sodium 140 133 - 145 mmol/L LAB CHEMISTRY METHOD 08/24/2024 8:11 AM [facility] Potassium 3.5 3.5 - 5.5 mmol/L LAB CHEMISTRY METHOD 08/24/2024 8:11 AM [facility] Chloride 102 96 - 110 mmol/L LAB CHEMISTRY METHOD 08/24/2024 8:11 AM [facility] CO2 29 21 - 32 mmol/L LAB CHEMISTRY METHOD 08/24/2024 8:11 AM [facility] Anion Gap 9 3 - 11 LAB CHEMISTRY METHOD 08/24/2024 8:11 AM [facility] Glucose 248(H) 70 - 100 mg/dL LAB CHEMISTRY METHOD 08/24/2024 8:11 AM [facility] BUN 27(H) 5 - 25 mg/dL LAB CHEMISTRY METHOD 08/24/2024 8:11 AM [facility] Creatinine 0.88 0.50 - 1.10 mg/dL LAB CHEMISTRY METHOD 08/24/2024 8:11 AM [facility] eGFR 77 >=60 mL/min/1. 73m2 LAB CHEMISTRY METHOD 08/24/2024 8:11 AM [facility] Comment:Calculation based on the Chronic Kidney Disease Epidemiology Collaboration (CKD-EPI) equation refit without adjustment for race. BUN/Creatinine Ratio 30.7 LAB CHEMISTRY METHOD 08/24/2024 8:11 AM [facility] Calcium 9.8 8.5 - 10.5 mg/dL LAB CHEMISTRY METHOD 08/24/2024 8:11 AM EST [facility] Blood Venous blood specimen / Unknown Venipuncture / Unknown 08/24/2024 6:37 AM EST 08/24/2024 7:04 AM EST Rhonda Rogers MD LAB BLOOD ORDERABLES Final Resu lt [facility] [address] [place] [address], [place] [phone] * Cervical Cancer Screening: HPV (12/20/2012) Cervical Cancer Screening: HPV no interpretation , abstracted Historical Provider HEALTH MAINTENANCE Final Result from Last 3 Months or Most Recently Relevant to Health Maintenance Insurance [facility] Advance Directives * Full Code - [...] currently active code status orders. Care Teams Calibration Technician Relationship Specialty Start Date End Date Yadi Hogan DO [address] [phone] PCP - General Internal Medicine 09/17/24
--- OUTSIDE RECORDS SUMMARY | 2025-05-27 10:27 | XMS_ITS | Clinical Summary ---
Author Organization [facility] Address [address] [place] [address] Care Team Providers Care Rig Superintendent Name Role Phone Sameer Rowland MD Primary [...] age to complete this topic Care Teams Rig Superintendent Relationship Specialty Start Date End Date Sameer Rowland MD PCP - General Hematology and Oncology 06/04/17
== END 2025-05-27 09:52 | disposition home or self-care (01) ==
LOC: HO.BBR 09:51
PROVIDERS: PCP Family Medicine; Visit Provider Internal Medicine
DX: D75.1 Secondary polycythemia (principal)
CPT/HCPCS: 85018; 99195

== ENCOUNTER 2025-06-29 10:01 | Outpatient (REF) | payer OTHER, SELFPAY ==
--- OUTSIDE RECORDS SUMMARY | 2025-05-18 04:45 | XMS_ITS ---
Author Organization [facility] Address [address] [place], [place] [id number] Care Team Providers Care Real Estate Services Administrator Name Role Phone ELOISA SMITH Primary Care Provide r [phone] REASON FOR VISIT 39/vv for glp 1 discussion/Patient cell [phone] MEDICATIONS Medication SIG (Take, Route, Frequency, Duration) Notes Start Date End Date Status Ozempic (0.25 or 0.5 MG/DOSE) 2 MG/3ML 0.25 mg Subcutaneous weekly for 30 days E66.9, I50.9, M17.0, E11.9, , I10, E78.00 Active SOCIAL HISTORY Sex Assigned At : Social History Observation Description Sex Assigned At Female PROBLEMS Problem Type ICD Code Onset Dates Problem Status W/U Status Risk SNOMED Code Notes Problem Obesity (BMI 30-39.9) (E66.9) Active confirmed [id number] Problem Primary osteoarthritis of both knees (M17.0) Active confirmed [id number] Problem Diabetes type 2, controlled (E11.9) Active confirmed 884709390 Problem Primary polycythemia (D45) Active confirmed [id number] Encounters Encounter Location Date Provider Diagnosis [facility] [address] [place] [address] 5 ELOISA SMITH Obesity (BMI 30-39.9) E66.9 ; Congestive heart failure, unspecified HF chronicity, unspecified heart failure type I50.9 ; Primary osteoarthritis of both knees M17.0 ; History of NM (myocardial infarction) I25.2 ; Hyperparathyroidism E21.3 ; Primary hypertension I10 ; High cholesterol E78.00 ; Diabetes type 2, controlled E11.9 ; Alkaline phosphatase elevation R74.8 ; Iron deficiency E61.1 and Primary polycythemia D45 ASSESSMENTS Encounter Date Diagnosis Assessment Notes Treatment Notes Treatment Clinical Notes Section Notes 05/18/2025 Obesity (BMI 30-39.9 ) (ICD-10 - E66.9) working on meal planning and activity.Given her history of CHF, OA, diabetes, high blood pressure, high cholesterol she would really benefit from weight loss and this medication would be helpful with this. GLP 1 SE: discussed possible side effects of these medications which can include: acute kidney injury (RAMAN), gastroparesis, n/v/d; gallbladder disease; abdominal pain; hypoglycemia or low blood sugar; increased risk of medullary thyroid cancer risk of pancreatitis; risk of allergy etc. If patients do not lose 4 to 5 percent of body weight after 12 weeks of therapy (at the maximum tolerated dose), we typically discontinue the medication. In individuals who had progressive weight gain that stopped with the initiation of pharmacotherapy , we often continue that medication even if they have not lost 4 to 5 percent of body weight at 12 weeks on the maximum dose 05/18/2025 Congestive heart failure, unspecified HF chronicity, unspecified heart failure type (ICD-10 - I50.9) had issues w/ entresto, resolved Will continue treatment and follow-up with cardiology as planned 05/18/2025 Primary osteoarthrit is of both knees (ICD-10 - M17.0) Continue with gentle activity and is working on weight loss goals to help alleviate some of her OA symptoms and complaints. 05/18/2025 History of NM (myocardial infarction) (ICD-10 - I25.2) See HPI for details. 05/18/2025 Hyperparathyroidism (ICD-10 - E21.3) will be fu w/ endo cat [facility] 05/18/2025 Primary hypertension (ICD-10 - I10) Continue current medication regimen and will monitor. 05/18/2025 High cholesterol (ICD-10 - E78.00) Continue current medication regimen. Will monitor fasting lipids. 05/18/2025 Diabetes type 2, controlled (ICD-10 - E11.9) Continue current medication regimen. Have ordered hemoglobin A1c as it had not been drawn with previously 05/18/2025 Alkaline phosphatase elevation (ICD-10 - R74.8) have ordered add'l labs may need imaging 05/18/2025 Iron deficiency (ICD-10 - E61.1) cont iron supplements and fu w/ hematology will monitor labs 05/18/2025 Primary polycythemia (ICD-10 - D45) cont tx, phlebotomy and fu w/ hemaotlogy as planned 05/18/2025 Other 17 min video dox visit as per hpi PLAN OF TREATMENT Medication Medication Name Sig Start Date Stop Date Notes Ozempic (0.25 or 0.5 MG/DOSE) 2 MG/3ML 0.25 mg Subcutaneous weekly for 30 days E66.9, I50.9, M17.0, E11.9, , I10, E78.00 Treatment Notes Assessment Notes Obesity (BMI 30-39.9) working on meal planning and activity.Given her history of CHF, OA, diabetes, high blood pressure, high cholesterol she would really benefit from weight loss and this medication would be helpful with this. GLP 1 SE: discussed possible side effects of these medications which can include: acute kidney injury (RAMAN), gastroparesis, n/v/d; gallbladder disease; abdominal pain; hypoglycemia or low blood sugar; increased risk of medullary thyroid cancer risk of pancreatitis; risk of allergy etc. If patients do not lose 4 to 5 percent of body weight after 12 weeks of therapy (at the maximum tolerated dose), we typically discontinue the medication. In individuals who had progressive weight gain that stopped with the initiation of pharmacotherapy, we often continue that medication even if they have not lost 4 to 5 percent of body weight at 12 weeks on the maximum dose Congestive heart failure, un specified HF chronicity, unspecified heart failure type had issues w/ entresto, resolved Will continue treatment and follow-up with cardiology as planned Primary osteoarthritis of both knees Con tinue with gentle activity and is working on weight loss goals to help alleviate some of her OA symptoms and complaints. History of NM (myocardial infarction) Se e HPI for details. Hyperparathyroidism will be fu w/ endo c at [facility] Primary hypertension Continue current me dication regimen and will monitor. High cholesterol Continue current med ication regimen. Will monitor fasting lipids. Diabetes type 2, controlled Continue cur rent medication regimen. Have ordered hemoglobin A1c as it had not been drawn with previously Alkaline phosphatase elevation have ordered add'l labs may need imaging Iron deficiency cont iron supplements and fu w/ hematology will monitor labs Primary polycythemia cont tx, phlebotomy and fu w/ hemaotlogy as planned Next Appt Details Follow Up: prn,3 Months, [place] son: Provider Name:ELOISA CARUSO, 10/07/2025 11:30:00 AM, [address] [facility], [place], [address], Progress Notes * Examination Category Sub-Category Detail Notes Category Not es General Examination see abov e History and Physical Notes * HPI (History of Present Illness) Category Sub-Category Detail Notes Category Not es General Pt Is here today for a follow-up visit. This is a Doximity video visit. Patient is at home and provider is at the [place] office location. She gives permission for visit understanding limitations including inability to perform physical exam. Understands that billing will be submitted as appropriate. The following is copied/reviewed/edited from previous: -fam hx ovarian cancer in mom. fam his colon ca in mom and h/o blood ca in mom colon cancer in maternal grandfather. mat aunt with breast ca -h/o OA of b/l knees. 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 wildlife biostation research ecologist Dr. lizama. Has been tolerating the iron supplements well and has routine follow-up with FINANCIAL ADVISOR TRAINEE. Mammogram is up-to-date. She was seen in the emergency room at [facility] on 08/24/2024. she was in hospital [...] referred to endocrinology and was seen by [facility] endocrinology on 09/25/2024 for subclinical hyperthyroidism. Thyroid uptake and scan have been scheduled. She has also been referred to them for her hyperparathyroidism and evaluation is pending. - quit smoking but has unfortunately gained a bit of weight has had worsening of her knee pain, no instability visit today to discuss meds to help w/ weight loss. prev labs reviewed w/ patient today: Your recent labs show: Serum calcium level was okay/slightly elevated but parathyroid hormone is elevated. You have been following up with endocrinology for hyperparathyroidism and should continue to do so. . Vitamin D levels are low at 15 and you benefit from aewy-vqc-iuqslcm supplement of your choice 2000 to 4000 IU daily. Your iron counts are low. Your fasting glucose, kidney function are good Your liver tests were good with the exception of alk phos which is slightly elevated.. Cholesterol panel is good Thyroid function shows sluggish thyroid with TSH above 10. Please make sure you have follow-up with your motor transport inspector so that they can adjust the dose of medication as needed. -------- ROS GENERAL: No malaise, significant weight loss or fever HEENT: No changes in vision or hearing. [...] APPEARANCE: Alert and in no acute distress LUNG: no audible dyspnea or wheezing or cough NEURO: Awake, alert and oriented x 3
--- OUTSIDE RECORDS SUMMARY | 2025-05-18 07:08 | XMS_ITS ---
Author Organization [facility] Address [address] [place] [phone] Care Team Providers Care Take Away Man Name Role Phone ELOISA SMITH Primary Care Provide r [phone] REASON FOR VISIT RX needs PA SOCIAL HISTORY Sex Assigned At : Social History Observation Description Sex Assigned At Female Encounters Encounter Location Date Provider Diagnosis [address] [address] 05/18/2025 ELOISA SMITH PLAN OF TREATMENT Next Appt Details Provider Name:ELOISA CARUSO, 10/07/2025 11:30:00 AM, [address] [place], [address],
--- OUTSIDE RECORDS SUMMARY | 2025-05-20 09:23 | XMS_ITS ---
Author Organization [facility] Address [address] [place] [phone] Care Team Providers Care Airplane Cover Maker Name Role Phone ELOISA SMITH Primary Care Provide r [phone] REASON FOR VISIT snd labs SOCIAL HISTORY Sex Assigned At : Social History Observation Description Sex Assigned At Female Encounters Encounter Location Date Provider Diagnosis [address] [address] 05/20/2025 ELOISA SMITH PLAN OF TREATMENT Next Appt Details Provider Name:ELOISA CARUSO, 10/07/2025 11:30:00 AM, [address] [place], [address],
--- OUTSIDE RECORDS SUMMARY | 2025-06-08 10:50 | XMS_ITS ---
Author Organization [facility] Address [address] [place] [phone] Care Team Providers Care Switchboard Installer Name Role Phone ELOISA SMITH Primary Care Provide r [phone] REASON FOR VISIT ozempic denial - appeal SOCIAL HISTORY Sex Assigned At : Social History Observation Description Sex Assigned At Female Encounters Encounter Location Date Provider Diagnosis [address] [address] 06/08/2025 ELOISA SMITH PLAN OF TREATMENT Next Appt Details Provider Name:ELOISA CARUSO, 10/07/2025 11:30:00 AM, [address] [place] [address], [address],
--- OUTSIDE RECORDS SUMMARY | 2025-06-26 10:27 | XMS_ITS ---
Author Organization [facility] Address [address] [place] [phone] Care Team Providers Care Online Facilitator Name Role Phone ELOISA SMITH Primary Care Provide r [phone] REASON FOR VISIT ozempic approval MEDICATIONS Medication SIG (Take, Route, Frequency, Duration) Notes Start Date End Date Status Ozempic (0.25 or 0.5 MG/DOSE) 2 MG/3ML 0.25 mg Subcutaneous weekly for 30 days E66.9, I50.9, M17.0, E11.9, , I10, E78.00 Active SOCIAL HISTORY Sex Assigned At : Social History Observation Description Sex Assigned At Female Encounters Encounter Location Date Provider Diagnosis [address] [address] 06/26/2025 ELOISA SMITH Obesity (BMI 30-39.9) E66.9 ASSESSMENTS Encounter Date Diagnosis Assessment Notes Treatment Notes Treatment Clinical Notes Section Notes 06/26/2025 Obesity (BMI 30-39.9) (ICD-10 - E66.9) PLAN OF TREATMENT Medication Medication Name Sig Start Date Stop Date Notes Ozempic (0.25 or 0.5 MG/DOSE) 2 MG/3ML 0.25 mg Subcutaneous weekly for 30 days E66.9, I50.9, M17.0, E11.9, , I10, E78.00 Next Appt Details Provider Name:ELOISA CARUSO, 10/07/2025 11:30:00 AM, [address] [place], [address],
--- OUTSIDE RECORDS SUMMARY | 2025-06-29 12:31 | XMS_ITS | Clinical Summary ---
Author Organization [facility] Address [address] [place] [address] Care Team Providers Care Event Marketing Assistant Name Role Phone Sameer Rowland MD Primary [...] age to complete this topic Care Teams Event Marketing Assistant Relationship Specialty Start Date End Date Sameer Rowland MD PCP - General Hematology and Oncology 06/04/17
--- OUTSIDE RECORDS SUMMARY | 2025-06-29 12:31 | XMS_ITS | Patient Health Record ---
Author Organization [facility] Address [address], [place] [id number] Care Team Providers Care Supervisor Home [employer] Name Role Phone TELLYPAOLOSHAKILA DE SANTIAGOLA Primary Care Provide r [phone] BARNARD, NURSING Unavailable [phone] IMGUE MARTINEZ Unavailable [phone] ZINA DEVINE Unavailable [phone] YI JONES Unavailable [phone] ALLERGIES No Known Allergies REASON FOR REFERRAL Reason 54 yr old female wit h CHF recent admission to [facility] Needs post hospital cardiology followup (08/27/24 W appt) Diagnosis 1 Congestive heart ray lure, unspecified HF chronicity, unspecified heart failure type (I50.9) Diagnosis 2 RBBB (I45.10) Diagnosis 3 Left anterior hemibl ock (I44.4) Referral Organization [facility] Referring Provider First Name MIGUE Referring Provider Last Name MICHELLE Referring Provider Speciality Internal M edicine Referred Provider LASHON HOWARD Referred Provider Specialty Cardiovascul ar Disease General Notes Patti ALLAN MA 1 10/27/2023 12:27:45 PM > faxed note and referral , Tamy ALLAN Referrals 08/27/2024 02:49:51 PM > medical [facility] and [facility] [phone] Priscilla P MA 09/01/2024 04:13:11 PM > faxed referral and ov notes to [facility] SANJANA Lisa K Referrals 09/24/2024 12:32:07 PM > per 08/29/24 visit > she will see cardiology Dr Howard appt early october, Tamy ALLAN Referrals 10/01/2024 09:19:39 AM > No Referral Required, Dr. Howard is in [facility] network Referral Priority Routine Referral Appointment Date 10/16/2024 Reason Lashell De Leon 54 yr old female with undetectable tsh, hyperthyroid, [facility] admit for CHF, uncontrolled HTN please see Diagnosis 1 Hyperthyroidism (E05 .90) Referral Organization [facility] Juan patel Referring Provider First Name MIGUE Referring Provider Last Name MICHELLE Referring Provider Speciality Internal edicine Referred Organization [facility] Referred Provider Specialty Endocrinolog y General Notes MIGUE MARTINEZ 2023 12:52:38 PM > [facility] endocrinology, , MIGUE MARTINEZ 09/15/2024 10:03:17 AM > states has a thyroid scan 09/19-. PLease fax the referral with last office note and recent labs to [facility] endocrinology, FAX:[phone], No Referral Required, [facility] endo providers are in [facility] network, referral has been faxed to [phone], Tamy ALLAN Referrals 09/18/2024 12:26:34 PM > appointment details receive from [facility] End[facility], the patient has been scheduled for 09/25/24 at 3:[address] De Leon Referral Priority Urgent Referral Appointment Date 09/25/2024 Reason *FAXED 09/02/24* 54 yr old female with recent admit for CHF,pulmonary edema. Had elevated troponins. Has reduced ejection fraction and bifascicular block , please see for post hospital care Diagnosis 1 Systolic congestive heart failure, unspecified HF chronicity (I50.20) Diagnosis 2 RBBB (I45.10) Diagnosis 3 Left anterior fascic ular block (I44.4) Referral Organization [facility] Referring Provider First Name MIGUE Referring Provider Last Name MICHELLE Referring Provider Speciality Internal edicine Referred Provider Specialty Cardiovascul ar Disease General Notes MIGUE MARTINEZ 2023 01:04:26 PM > Dr Cheney or Mirtha carrillo [facility], [phone] [address] [place] [address], Faviola ALLAN [employer] Cabin Attendant 09/02/2024 09:25:47 AM > [facility], Tamy ALLAN Referrals 10/02/2024 11:19:15 AM > per 09/01/24 encounter > She will call [facility] if not heard from them by Sunday afternoon and she can use copy referral with EKG ttached to make consult apptSANJANA Lisa K Referrals 10/02/2024 11:26:50 AM > per 10/01/24 encounter >was ref to and seen by cards dr cheney [facility] Referral Priority Urgent Reason any PT for eval and tx of b/l knee pain. pls print. Diagnosis 1 Pain in right knee ( M25.561) Referral Organization [facility] Referring Provider First Name ELOISA Referring Provider Last Name ERIC DE SANTIAGO Referring Provider Speciality Internal edicine Referred Provider Specialty Physical The rapist Referral Priority Routine Reason (faxed 01/05/25) [facility] for eval and treatment of bilateral knee pain Diagnosis 1 Pain in left knee (M 25.562) Referral Organization [facility] Referring Provider First Name ELOISA Referring Provider Last Name ERIC DE SANTIAGO Referring Provider Speciality Internal edicine Referred Provider PRIYA SAHA Referred Provider Specialty Orthopedic S urgery General Notes Eun ALLAN MA 12/14 11:25:58 AM > form, demo, imaging and last ov faxed to [facility] pt previously established with their office . , F : [phone], Cristina ALLAN P Admin 01/13/2025 03:07:02 PM > no referral required as doctor is in network with [facility]>faxed to [facility] at [phone]>encounter closed Referral Priority Routine Referral Appointment Date 01/13/[address] [facility] fo r eval and tx of hyperparathyroid and elevated alk phos in addition to thyroid Diagnosis 1 Elevated alkaline ph osphatase level (R74.8) Diagnosis 2 Hyperparathyroidism (E21.3) Referral Organization [facility] Referring Provider First Name ELOISA Referring Provider Last Name ERIC DE SANTIAGO Referring Provider Speciality Internal edicine Referred Organization [facility] Referred Address Fax # on request fax ,[place] Referred Provider Specialty Endocrinolog y General Notes Eun ALLAN SIOBHAN 02/12 08:04:24 PM > faxed to [facility], F: [phone], Eun ALLAN SIOBHAN 05/06/2025 12:20:31 PM > faxed to [facility] , f: [phone] Clinical Notes ELOISA SMITH 05/06/2025 12:17:50 PM >pls make sure snt to endo not GI, Itzel ALLAN SIOBHAN 06/21/2025 01:02:51 PM > see incoming docs pt was seen 05/28/25 Referral Priority Routine Referral Appointment Date 05/28/2025 MEDICATIONS Medication SIG (Take, Route, Frequency, Duration) Notes Start Date End Date Status Ozempic (0.25 or 0.5 MG/DOSE) 2 MG/3ML 0.25 mg Subcutaneous weekly for 30 days E66.9, I50.9, M17.0, E11.9, , I10, E78.00 Active IMMUNIZATIONS Vaccine Route Administration Date Status Comme nts Influenza, Flublok IM Intramuscular 10/02/2024 Administere d SOCIAL HISTORY Tobacco Use: Social History Observation Description Date Details (start date - stop date) Former Smoker NA - NA Sex Assigned At : Social History Observation Description Sex Assigned At Female Smoking Question Answer Notes Are you a: former smoker PROBLEMS Problem Type ICD Code Onset Dates Problem Status W/U Status Risk SNOMED Code Notes Problem Diabetes type 2, controlled (E11.9) Active confirmed 013932120 Problem Low back pain (M54.5) Active confirmed Low back pain (888808665) Problem Hyperthyroidism (E05.90) Active confirmed 38540266 Problem Left ventricular hypertrophy (I51.7) Active confirmed 12063312 Problem Obesity (BMI 30-39.9 ) (E66.9) Active confirmed 800816744 Problem Obesity (BMI 30.0-34.9) (E66.9) Active confirmed 676839669934846 Problem Hypercalcemia (E83.52) Active confirmed 11739318 Problem Other chronic pain (G89.29) Active confirmed 07701227 Problem Bifascicular block (I45.2) Active confirmed 63421532 Problem Other cervical disc degeneration, mid-cervical region (M50.32) Active confirmed Degeneration of cervical intervertebral disc (57720050) Problem Tobacco use (Z72.0) Active confirmed 36 9028361 Problem Primary osteoarthritis of both knees (M17.0) Active confirmed 540039053 Problem Iron deficiency anemia due to chronic blood loss (D50.0) Active confirmed 746086490 Problem Primary osteoarthritis of right knee (M17.11) Active confirmed 469355330398500 Problem Multinodular thyroid (E04.2) Active confirmed 579294883 Problem Hyperparathyroidism (E21.3) Active confirmed 34037653 Problem RBBB (I45.10) Active confirmed 97580380 Problem Polycythemia (D75.1) Active confirmed 1 [id number] juan carlos 09/2024; Problem Leukocytosis, unspecified type (D72.829) Active confirmed 897863593 Problem Family history of ovarian cancer (Z80.41) Active confirmed 065969091 dx age 68. Problem Serum calcium elevated (E83.52) Active confirmed 78230135 Problem Mitral valve insufficiency, unspecified etiology (I34.0) Active confirmed 90991985 Problem Primary hypertension (I10) Active confirmed 13389751 Problem History of vitamin D deficiency (Z86.39) Active confirmed 43230739440123 Problem History of WV (myocardial infarction) (I25.2) Active confirmed 004255386 Problem Family history of colon cancer in mother (Z80.0) Active confirmed 840867055 age 60 Problem Osteoarthritis of both knees, unspecified osteoarthritis type (M17.0) Active confirmed 324201413250736 Problem High cholesterol (E78.00) Active confirmed 33108567 Problem Thyromegaly (E01.0) Active confirmed 37 48075 Problem Systolic CHF, chroni c (I50.22) Active confirmed 474866459 Problem Congestive heart failure, unspecified HF chronicity, unspecified heart failure type (I50.9) Active confirmed 35991850 Problem LAFB (left anterior fascicular block) (I44.4) Active confirmed 36575868 Problem Primary polycythemia (D45) Active confirmed 263334698 VITAL SIGNS Blood pressure diastolic 80 mm Hg 05/06/2025 Height 67.125 in 05/06/2025 Blood pressure systolic 154 mm Hg 05/06/2025 Weight 211 lbs 05/06/2025 BMI 32.92 kg/m2 05/06/2025 Encounters Encounter Location Date Provider Diagnosis [place] [id number] [address] [place] [address] 4 ELOISA SMITH [place] [id number] [address] [place] [address] 4 MIGUE MARTINEZ History of CHF (congestive heart failure) Z86.79 ; Elevated blood pressure reading R03.0 ; Screening for deficiency anemia Z13.0 ; Other fatigue R53.83 ; Polycythemia D75.1 ; Cardiomegaly I51.7 ; LVH (left ventricular hypertrophy) I51.7 ; Moderate mitral regurgitation I34.0 ; RBBB I45.10 and Left anterior hemiblock I44.4 [place] [id number] [address] [place] [address] 4 [place] [id number] 4 ELOISA SMITH Elevated glucose R73.09 ; Serum calcium elevated E83.52 and Low TSH level R79.89 [place] [id number] 4 [place] [id number] 4 MIGUE MARTINEZ Systolic CHF, chronic I50.22 ; Mitral valve insufficiency, unspecified etiology I34.0 ; Polycythemia D75.1 ; Left ventricular hypertrophy I51.7 ; RBBB I45.10 ; LAFB (left anterior fascicular block) I44.4 ; Low TSH level R79.89 ; Hyperthyroidism E05.90 ; Prediabetes R73.03 ; History of WV (myocardial infarction) I25.2 ; Tobacco user Z72.0 and Hypercalcemia E83.[address] [address] 4 MIGUE MARTINEZ Bifascicular block I45.2 and Systolic congestive heart failure, unspecified HF chronicity I50.20 [place] [id number] [address] [place] [address] 4 NURSING BARNARD Bifascicular block I45.2 and Systolic congestive heart failure, unspecified HF chronicity I50.20 [facility] [address] [place] [id number] 4 ELOISA SMITH [address] 4 ELOISA SMITH Hyperthyroidism E05.90 [place] [id number] 4 ELOISA LIMACOLASACCO [address] 4 ELOISA LIMACOEZIOACCO [place] [id number] 4 ELOISA LIMACOLASACCO [address] 4 ELOISA LIMACOANYI Physical exam Z00.00 ; Hyperthyroidism E05.90 ; Tobacco use Z72.0 ; Primary hypertension I10 ; Systolic CHF, chronic I50.22 ; Polycythemia D75.1 and IFG (impaired fasting glucose) R73.[address] [address] 4 ELOISA LIMACOLASTANYA [place] [id number] [facility] Encounter for immunization Z23 [facility] [address] [place] [address] 5 ELOISA SMITH [facility] [address] [place], [place] [id number] 5 [facility] Tobacco user Z72.0 [place] [id number] 5 ELOISA SMITH Left knee pain, unspecified chronicity M25.562 [place] [id number] 5 ELOISA LIMACOEZIOACCO [place] [id number] 5 ELOISA LIMACOANYI Primary hypertension I10 ; Tobacco use Z72.0 ; Congestive heart failure, unspecified HF chronicity, unspecified heart failure type I50.9 ; Family history of colon cancer in mother Z80.0 ; Polycythemia D75.1 ; Weight gain R63.5 ; Pain in left knee M25.562 ; Pain in right knee M25.561 ; Hyperthyroidism E05.90 and Multinodular thyroid E04.2 [place] [id number] 5 ELOISA LIMACOEZIOACCO [place] [id number] 5 ELOISA LIMACOEZIOACCO Primary hypertension I10 ; Systolic CHF, chronic I50.22 ; Hyperthyroidism E05.90 ; History of WV (myocardial infarction) I25.2 ; High cholesterol E78.00 ; IFG (impaired fasting glucose) R73.01 ; Polycythemia D75.1 ; Leukocytosis, unspecified type D72.829 ; Iron deficiency E61.1 ; Serum calcium elevated E83.52 and History of vitamin D deficiency Z86.39 [place] [id number] 5 ELOISA SMITH Hyperparathyroidism E21.3 and Elevated alkaline phosphatase level R74.[address] [address] 5 ELOISA SMITH Hyperparathyroidism E21.3 ; Primary hypertension I10 ; Congestive heart failure, unspecified HF chronicity, unspecified heart failure type I50.9 ; Hyperthyroidism E05.90 ; Polycythemia D75.1 ; Alkaline phosphatase elevation R74.8 and Knee pain, unspecified chronicity, unspecified laterality M25.[address] [address] 5 ELOISA SMITH Obesity (BMI 30-39.9) E66.9 ; Congestive heart failure, unspecified HF chronicity, unspecified heart failure type I50.9 ; Primary osteoarthritis of both knees M17.0 ; History of WV (myocardial infarction) I25.2 ; Hyperparathyroidism E21.3 ; Primary hypertension I10 ; High cholesterol E78.00 ; Diabetes type 2, controlled E11.9 ; Alkaline phosphatase elevation R74.8 ; Iron deficiency E61.1 and Primary polycythemia D45 [address] [address] 5 ELOISA SMITH [address] [address] 5 ELOISA SMITH [address] [address] 5 ELOISA SMITH [address] [address] 5 ELOISA SMITH Obesity (BMI 30-39.9) E66.9 ASSESSMENTS [...] at 12 weeks on the maximum dose 02/25/2025 Hyperparathyroidism (ICD-10 - E21.3) 01/09/2025 Primary hypertension (ICD-10 - I10) 05/06/2025 Hyperparathyroidism (ICD-10 - E21.3) Will be following up with endocrinology at [facility] for eval and treatment. 11/10/2024 Left knee pain, unspecified chronicity (ICD-10 - M25.562) 12/31/2024 Primary hypertension (ICD-10 - I10) her meds were recently adjusted by cardiology, amlodipine is new and the dose of coreg was increased. she isnt sure what the dose of amlodipine is. 10/01/2024 Physical exam (ICD-1 0 - Z00.00) mammo scheduled colon utd 08/27/2024 History of CHF (congestive heart failure) (ICD-10 - Z86.79) referral Dr Howard cardiology, pt to use referral to call for post hospital appt; she is going to Dr Howard's office to discuss the PA that they sent to local pharmacy when apparently was supposed to go to [facility] for the entresto, Continues the furosemide and carvedilol. Is feeling much better on the current meds and states cardiology sent the PA to local pharmacy and was supposed to go to [facility]. She will be going to Dr Howard'd cardioogy office to discuss this. 08/27/2024 Elevated blood pressure reading (ICD-10 - R03.0) Is feeling much better on the current meds and states cardiology sent the PA to local pharmacy and was supposed to go to [facility]. She will be going to Dr Howard'd cardioogy office to discuss this. 08/29/2024 Mitral valve insufficiency, unspecified etiology (ICD-10 - I34.0) feels good on current CV regimen and intends on quitting cigarettes altogether and requests nicotene patches. encounter > 30 minutes 08/29/2024 Systolic CHF, chroni c (ICD-10 - I50.22) she will see cardiology Dr Salomón sauer early october; she continues her current CV meds, f/u pcp 09/05; she is aware if any sob, cp or other new symptoms she will call the office feels good on current CV regimen and intends on quitting cigarettes altogether and requests nicotene patches. encounter > 30 minutes 08/28/2024 Elevated glucose (ICD-10 - R73.09) 08/28/2024 Serum calcium elevated (ICD-10 - E83.52) 08/31/2024 Bifascicular block (ICD-10 - I45.2) 08/31/2024 Systolic congestive heart failure, unspecified HF chronicity (ICD-10 - I50.20) 09/05/2024 Bifascicular block (ICD-10 - I45.2) 09/05/2024 Systolic congestive heart failure, unspecified HF chronicity (ICD-10 - I50.20) 10/01/2024 Hyperthyroidism (ICD-10 - E05.90) stop methimazole 1 week before thryoid uptake scan on 10/24/24 as directed by endo adn will fu w/ them as directed 09/05/2024 Hyperthyroidism (ICD-10 - E05.90) 10/02/2024 Encounter for immunization (ICD-10 - Z23) VIS sheet provided to patient influenza vaccine administered patient counseled 12/31/2024 Tobacco use (ICD-10 - Z72.0) commended on cessation 10/30/2024 Tobacco user (ICD-10 - Z72.0) 05/06/2025 Primary hypertension (ICD-10 - I10) Continue medications as directed by cardiology. Has been tolerating well. They have been adjusting her meds as needed (and did do testing for secondary causes such as renal artery stenosis earlier this year --testing was normal) 01/09/2025 Systolic CHF, chroni c (ICD-10 - I50.22) 02/25/2025 Elevated alkaline phosphatase level (ICD-10 - R74.8) 05/18/2025 Congestive heart failure, unspecified HF chronicity, unspecified heart failure type (ICD-10 - I50.9) had issues w/ entresto, resolved Will continue treatment and follow-up with cardiology as planned 06/26/2025 Obesity (BMI 30-39.9 ) (ICD-10 - E66.9) 10/01/2024 Tobacco use (ICD-10 - Z72.0) working on cessation 12/31/2024 Congestive heart failure, unspecified HF chronicity, unspecified heart failure type (ICD-10 - I50.9) reports she is doing well and that cardiology informed her of the same, notes requested 05/06/2025 Congestive heart failure, unspecified HF chronicity, [...] is tryng to clear up w/ cardiology 08/28/2024 Low TSH level (ICD-1 0 - R79.89) 01/09/2025 Hyperthyroidism (ICD-10 - E05.90) 08/29/2024 Polycythemia (ICD-10 - D75.1) she will call hematology Dr Swan for post hospital consult for polycythemia. feels good on current CV regimen and intends on quitting cigarettes altogether and requests nicotene patches. encounter > 30 minutes 08/27/2024 Screening for deficiency anemia (ICD-10 - Z13.0) Is feeling much better on the current meds and states cardiology sent the PA to local pharmacy and was supposed to go to [facility]. She will be going to Dr Howard'd cardioogy office to discuss this. 05/18/2025 Primary osteoarthritis of both knees (ICD-10 - M17.0) Continue with gentle activity and is working on weight loss goals to help alleviate some of her OA symptoms and complaints. 10/01/2024 Primary hypertension (ICD-10 - I10) toleratig current regimen well adn will cont 12/31/2024 Family history of colon cancer in mother (ICD-10 - Z80.0) never saw genetics and we discussed referral again , will consider for future is focusing on other med issues for now 08/29/2024 Left ventricular hypertrophy (ICD-10 - I51.7) continue current CV meds0 feels good on current CV regimen and intends on quitting cigarettes altogether and requests nicotene patches. encounter > 30 minutes 05/06/2025 Hyperthyroidism (ICD-10 - E05.90) march 2025 the tsh was 5.7 , improved Will continue current regimen and will monitor TSH.Has regular follow-up with endocrinology they have been adjusting her methimazole dosing. 08/27/2024 Other fatigue (ICD-1 0 - R53.83) Is feeling much better on the current meds and [facility] cardiology sent the PA to local pharmacy and was supposed to go to [facility]. She will be going to Dr Faith cardioogy office to discuss this. 01/09/2025 History of WV (myocardial infarction) (ICD-10 - I25.2) 05/18/2025 History of WV (myocardial infarction) (ICD-10 - I25.2) See HPI for details. 05/06/2025 Polycythemia (ICD-10 - D75.1) cont fu w/ hematolgoy at [place] has phlebotomy monthly 01/09/2025 High cholesterol (ICD-10 - E78.00) 12/31/2024 Polycythemia (ICD-10 - D75.1) plan w/ heme/onc as per hpi and she will fu as directed 10/01/2024 Systolic CHF, chroni c (ICD-10 - I50.22) cont med regimen and fu w/ cardiology 05/18/2025 Hyperparathyroidism (ICD-10 - E21.3) will be fu w/ endo [facility] 08/29/2024 RBBB (ICD-10 - I45.10) feels good on current CV regimen and intends on quitting cigarettes altogether and requests nicotene patches. encounter > 30 minutes 08/27/2024 Polycythemia (ICD-10 - D75.1) she is seeing Dr Swan hematology as out pt for this Is feeling much better on the current meds and [facility] cardiology sent the PA to local pharmacy and was supposed to go to [facility]. She will be going to Dr Faith cardioogy office to discuss this. 10/01/2024 Polycythemia (ICD-10 - D75.1) she will fu w/ heme/onc as planned 08/29/2024 LAFB (left anterior fascicular block) (ICD-10 - I44.4) feels good on current CV regimen and intends on quitting cigarettes altogether and requests nicotene patches. encounter > 30 minutes 05/18/2025 Primary hypertension (ICD-10 - I10) Continue current medication regimen and will monitor. 05/06/2025 Alkaline phosphatase elevation (ICD-10 - R74.8) Will continue to monitor LFTs. May have been elevated due to her heart failure. 08/27/2024 Cardiomegaly (ICD-10 - I51.7) Is feeling much better on the current meds and states cardiology sent the PA to local pharmacy and was supposed to go to [facility]. She will be going to Dr Howard'karis cardioogy office to discuss this. 10/01/2024 IFG (impaired fastin g glucose) (ICD-10 - R73.01) cont to monitor fasting glucose adn Hba1c 08/29/2024 Low TSH level (ICD-1 0 - R79.89) feels good on current CV regimen and intends on quitting cigarettes altogether and requests nicotene patches. encounter > 30 minutes 12/31/2024 Weight gain (ICD-10 - R63.5) unfortunately since quitting smoking has gained weight . she admits she has been more sedentary adn plans on increasing her activity 05/18/2025 High cholesterol (ICD-10 - E78.00) Continue current medication regimen. Will monitor fasting lipids. 05/06/2025 Knee pain, unspecified chronicity, unspecified laterality (ICD-10 - M25.569) cont tx adn fu w/ ortho as planned 01/09/2025 Polycythemia (ICD-10 - D75.1) 08/27/2024 LVH (left ventricula r hypertrophy) (ICD-10 - I51.7) Is feeling much better on the current meds and states cardiology sent the PA to local pharmacy and was supposed to go to [facility]. She will be going to Dr Faith cardioogy office to discuss this. 01/09/2025 IFG (impaired fastin g glucose) (ICD-10 - R73.01) 12/31/2024 Pain in left knee (ICD-10 - M25.562) have ref to PT which she will schedule at facility of her choice and have ref to orthopedics 08/29/2024 Hyperthyroidism (ICD-10 - E05.90) she will use the [facility] endocrinoloy referral to bring there to set consult appt; added labs today f/u pcp 1 wk feels good on current CV regimen and intends on quitting cigarettes altogether and requests nicotene patches. encounter > 30 minutes 08/27/2024 Moderate mitral regurgitation (ICD-10 - I34.0) Is feeling much better on the current meds and [facility] cardiology sent the PA to local pharmacy and was supposed to go to [facility]. She will be going to Dr Howard'karis cardioogy office to discuss this. 05/18/2025 Diabetes type 2, controlled (ICD-10 - E11.9) Continue current medication regimen. Have ordered hemoglobin A1c as it had not been drawn with previously 01/09/2025 Leukocytosis, unspecified type (ICD-10 - D72.829) 05/18/2025 Alkaline phosphatase elevation (ICD-10 - R74.8) have ordered add'l labs may need imaging 08/27/2024 RBBB (ICD-10 - I45.10) Is feeling much better on the current meds and [facility] cardiology sent the PA to local pharmacy and was supposed to go to [facility]. She will be going to Dr Howard'karis cardioogy office to discuss this. 08/29/2024 Prediabetes (ICD-10 - R73.03) reduce simple carbs feels good on current CV regimen and intends on quitting cigarettes altogether and requests nicotene patches. encounter > 30 minutes 12/31/2024 Pain in right knee (ICD-10 - M25.561) 01/09/2025 Serum calcium elevated (ICD-10 - E83.52) 01/09/2025 Iron deficiency (ICD-10 - E61.1) 05/18/2025 Iron deficiency (ICD-10 - E61.1) cont iron supplements and fu w/ hematology will monitor labs 08/27/2024 Left anterior hemiblock (ICD-10 - I44.4) Is feeling much better on the current meds and states cardiology sent the PA to local pharmacy and was supposed to go to [facility]. She will be going to Dr Howard'd cardioogy office to discuss this. 08/29/2024 History of [place] (myocardial infarction) (ICD-10 - I25.2) feels good on current CV regimen and intends on quitting cigarettes altogether and requests nicotene patches. encounter > 30 minutes 12/31/2024 Hyperthyroidism (ICD-10 - E05.90) cont tx and fu w/ endo as planned 01/09/2025 History of vitamin D deficiency (ICD-10 - Z86.39) 12/31/2024 Multinodular thyroid (ICD-10 - E04.2) Had recent ultrasound on 12/04/2024 and has follow-up with endocrinology to discuss results and schedule 05/18/2025 Primary polycythemia (ICD-10 - D45) cont tx, phlebotomy and fu w/ hemaotlogy as planned 08/29/2024 Tobacco user (ICD-10 - Z72.0) feels good on current CV regimen and intends on quitting cigarettes altogether and requests nicotene patches. encounter > 30 minutes 08/29/2024 Hypercalcemia (ICD-1 0 - E83.52) PTH related peptide pending feels good on current CV regimen and intends on quitting cigarettes altogether and requests nicotene patches. encounter > 30 minutes 10/01/2024 Other Patient is seen today for a routine physical. As part of this visit we reviewed the following issues, which are considered and essential part of preventative health in this age group: - Breast Cancer screening for high risk individuals -pending - Cervical Cancer screening every 1-3 years - utd - Blood pressure screening annually - performed - Cholesterol screening every five years -utd - Osteoporosis prevention including calcium/vitamin D intake, weight bearing exercise & smoking cessation - Nutritional and exercise counseling - patient was advised to cont healthy lifestyle choices - Counseling of injury prevention including fire prevention, smoke alarms and seat belt usage - Screening for depression -denies - Screening for domestic abuse - Screening for Type 2 diabetes mellitus in those with HTN and/or HLD - Prevention of and/or testing for infectious diseases, which may include Chlamydia Gonorrhea, Syphilis, HIV, Hepatitis C, and Tuberculosis - - Education about skin cancer - Recommendations about immunizations - - Recommendation of an eye exam for glaucoma once in this age range - patient will self refer - Screening for substance abuse (including tobacco, alcohol, and recreational drugs) - Genetic cancer risk screening - In addition to reviewing these issues, I have reviewed the following sections of the chart: family history, social history, surgical history, allergies, and past medical history. 12/31/2024 Other will go for pre v ordered labs 05/18/2025 Other 17 min video dox visit as per [facility] PLAN OF TREATMENT Future Test Test Name Order Date LIPID PROFILE 08/26/2015 COMP. METABOLIC 08/26/2015 25 OH Vitamin D 08/26/2015 LIPID PROFILE 06/28/2016 FREE T4 06/28/2016 TSH 06/28/2016 CBC W/ AUTOMATED DIFF 06/28/2016 COMP. METABOLIC 06/28/2016 LIPID PROFILE 11/25/2021 CBC W/OUT AUTOMATED DIFF 11/25/2021 COMP. METABOLIC 11/25/2021 TSH WITH REFLEX TO FT4 11/25/2021 US : Thyroid 02/09/2023 LIPID PANEL 02/09/2023 BASIC METABOLIC PANEL 02/09/2023 HEPATIC FUNCTION PANEL 02/09/2023 25OH VITAMIN D 02/09/2023 CBC (COMPLETE BLOOD COUNT) WITH DIFF FERRITIN 02/09/2023 FOLIC ACID 02/09/2023 IRON AND TIBC 02/09/2023 TSH 02/09/2023 VITAMIN B12 02/09/2023 TSH WITH REFLEX TO FT4 (ADULTS ONLY) 04/2023 IONIZED CALCIUM 03/21/2023 PTH INTACT 03/21/2023 US : Thyroid 03/20/2024 Next Appt Details Provider Name:ELOISA MICHAEL CARUSO, 10/07/2025 11:30:00 AM, [address] [place], [address], Insurance Providers Payer Name Payer Address Payer Phone Subscriber Number Group Number Insured Name Patient Relationship to Insured Coverage Start Date Coverage End Date [facility] [address] [place] [address] [id number] GRANT BIRD Self - patient is the insured 11/18/202 1 MEDICAL (GENERAL) HISTORY Surgical History Surgery Date(Month/Year) 1987 Hospitalization History Reason Date(Month/Year) as above [facility]: HTN, Pulm Edema, Acute Resp Failure , Cardiomyopathy [id number]
--- OUTSIDE RECORDS SUMMARY | 2025-06-29 12:31 | XMS_ITS | Clinical Summary ---
Author Organization [facility] Address [address] [place] [address] Phone Care Team Providers Care Utility Bill Collector Name Role Phone Yadi Hogan DO Primary [...] Date Hypertensive emergency 08/20/2024 Acute pulmonary edema ([facility] V24, [facility] V28) 08/20/2024 NSTEMI (non-ST elevated myoc ardial infarction) ([facility] V24, [facility] V28) 08/20/2024 Acute respiratory failure, u nspecified whether with hypoxia or hypercapnia ([facility] V24, [facility] V28) 08/20/2024 Encounters Date Type Department Care Team Description 05/27/2025 3:45 PM EDT Office Visit [facility] Hematology Oncology [address] [place] [address] Gregg Swan MD Polycythemia (Primary Dx) from [...] Smoking Tobacco: Some Days Smokeless Tobacco: Never Tobacco Cessation:Ready to Q uit: Not Asked; Counseling Given: Not Answered Alcohol Use Standard Drinks/Week Comments Yes 0 [...] Sign Reading Time Taken Comments Blood Pressure 134/71 05/27/2025 3:41 PM EDT Pulse 77 05/27/2025 3:41 PM EDT Temperature 36.4 C (97.6 F) 05/27/2025 3:41 PM EDT Respiratory Rate 19 08/24/2024 7:56 AM EST Oxygen Saturation 96% 05/27/2025 3:41 PM EDT Inhaled Oxygen Concentration - - Weight 95.3 kg (210 lb) 05/27/2025 3:41 PM EDT Height 170.2 cm (5' 7 ) 05/27/2025 3:41 PM EDT Body Mass Index 32.89 05/27/2025 3:41 PM EDT Plan of Treatment Upcoming Encounters Date Type Department Care Team (Late st Contact Info) Description 09/30/2025 1:45 PM EST Office Visit [facility] Hematology Oncology [address] [place] [phone] Gregg Swan MD [address] [place] [address] Health Maintenance Due Date Last Done Comments [...] 09/12/2022 Social Influencers of Health Screening 09/12/2022 Depression Screening 10/15/2024 COVID-19 Vaccine ( season) 2025 12/16/2021, 04/19/2021, 03/22/2021 Influenza Vaccine (#1) 2025 [...] Diagnosis Comments CBC WITH AUTO DIFFERENTIAL Routine 05/27/2025 3:53 PM EDT Polycythemia RETICULOCYTE COUNT Routine 05/27/2025 3: 53 PM EDT Polycythemia ERYTHROPOIETIN Routine 05/27/2025 3:53 PM EDT Polycythemia CBC AND DIFFERENTIAL Routine 05/27/2025 3:53 PM EDT Polycythemia BASIC METABOLIC PANEL Routine 08/24/2024 6:37 AM EST LIPID PANEL WITH REFLEX TO DIRECT LDL Add-On 08/24/2024 6:37 AM EST HM HPV Routine 12/20/2012 from Last 3 Months or Most Recently Relevant to Health Maintenance Results * (ABNORMAL) CBC auto differential (05/27/2025 3:53 PM EDT) WBC 15.6(H) 4.8 - 10.8 K/[facility] HEMETOLOGY METHOD 05/27/2025 7:08 PM EDT [facility] RBC 8.80(H) 3.80 - 4.80 M/[facility] Hemoglobin 15.4 11.5 - 16.0 g/dL LAB HEMETOLOGY METHOD 05/27/2025 7:08 PM [facility] Hematocrit 53.0(H) 35.0 - 47.0 % LAB HEMETOLOGY METHOD 05/27/2025 7:08 PM [facility] MCV 60.9(L) 79.0 - 98.0 FL LAB HEMETOLOGY METHOD 05/27/2025 7:08 PM [facility] MCH 17.7(L) 27.0 - 32.0 pcg LAB HEMETOLOGY METHOD 05/27/2025 7:08 PM [facility] MCHC 29.1(L) 32.0 - 37.0 g/dL LAB HEMETOLOGY METHOD 05/27/2025 7:08 PM [facility] RDW 22.6(H) 11.0 - 15.0 % LAB HEMETOLOGY METHOD 05/27/2025 7:08 PM [facility] Platelets 256 130 - 400 K/mcL LAB HEMETOLOGY METHOD 05/27/2025 7:08 PM [facility] MPV LAB HEMETOLOGY METHOD 05/27/2025 7:08 PM [facility] Comment:Not Measured NRBC 0.3 <1.0 % LAB HEMETOLOGY METHOD 05/27/2025 7:08 PM [facility] NRBC Absolute 0.04 <0.10 K/mcL LAB HEMETOLOGY METHOD 05/27/2025 7:08 PM [facility] Neutrophils Relative 67.9 % LAB HEMETOLOGY METHOD 05/27/2025 7:08 PM [facility] Lymphocytes Relative 19.8 % LAB HEMETOLOGY METHOD 05/27/2025 7:08 PM [facility] Monocytes Relative 4.9 % LAB HEMETOLOGY METHOD 05/27/2025 7:08 PM [facility] Eosinophils Relative 6.0 % LAB HEMETOLOGY METHOD 05/27/2025 7:08 PM [facility] Basophils Relative 0.6 % LAB HEMETOLOGY METHOD 05/27/2025 7:08 PM [facility] Immature Granulocytes Relative 0.8 % LAB HEMETOLOGY METHOD 05/27/2025 7:08 PM [facility] Neutrophils Absolute 10.54(H) 1.50 - 7.00 K/mcL LAB HEMETOLOGY METHOD 05/27/2025 7:08 PM [facility] Lymphocytes Absolute 3.08 1.00 - 5.00 K/mcL LAB HEMETOLOGY METHOD 05/27/2025 7:08 PM [facility] Monocytes Absolute 0.76 0.20 - 1.00 K/mcL LAB HEMETOLOGY METHOD 05/27/2025 7:08 PM [facility] Eosinophils Absolute 0.94(H) 0.00 - 0.50 K/mcL LAB HEMETOLOGY METHOD 05/27/2025 7:08 PM [facility] Basophils Absolute 0.10 0.00 - 0.20 K/mcL LAB HEMETOLOGY METHOD 05/27/2025 7:08 PM [facility] Immature Granulocytes Absolute 0.12(H) 0.00 - 0.03 K/mcL LAB HEMETOLOGY METHOD 05/27/2025 7:08 PM [facility] Blood Venous blood specimen / Unknown Venipuncture / Unknown 05/27/2025 3:53 PM EDT 05/27/2025 4:28 PM EDT [facility] John Swan MD LAB BLOOD ORDERABLES Final R esult [facility] [address] [place] [address], * Erythropoietin (05/27/2025 3:53 PM EDT) Pathologist [facility] Erythropoietin 2.6 2.6 - 18.5 mIU/mL 06/01/2025 4:58 PM EDT [facility] Comment: Test performed at [facility], [address] , [place] [address] Rose Fabian MD, PhD - Core Cutter Blood Venous blood specimen / Unknown Venipuncture / Unknown 05/27/2025 3:53 PM EDT 05/27/2025 4:27 PM EDT Gregg Swan MD LAB BLOOD ORDERABLES Final R esult Performing Organization Address City/[facility]/ZIP Co de Phone Number [facility] [address] [place] [address] * (ABNORMAL) Reticulocyte count (05/27/2025 3:53 PM EDT) Pathologist [facility] Retic Ct Abs 0.120(H) 0.030 - 0.090 M/mcL LAB HEMETOLOGY METHOD 05/27/2025 7:08 PM EDT [facility] Retic Ct Pct 1.3 0.7 - 1.7 % LAB HEMETOLOGY METHOD 05/27/2025 7:08 PM EDT [facility] Immature Retic Fract 27.7(H) 2.3 - 15.9 % LAB HEMETOLOGY METHOD 05/27/2025 7:08 PM EDT [facility] Reticulocyte Hemoglobin 18.6(L) >29.0 pcg LAB HEMETOLOGY METHOD 05/27/2025 7:08 PM EDT [facility] Blood Venous blood specimen / Unknown Venipuncture / Unknown 05/27/2025 3:53 PM EDT 05/27/2025 4:28 PM EDT us Gregg Swan MD LAB BLOOD ORDERABLES Final R esult [facility] [address] [place] [address], [place] [phone] * (ABNORMAL) Lipid panel with reflex to direct LDL (08/24/2024 6:37 AM EST) Cholesterol 163 0 - 200 mg/dL LAB CHEMISTRY METHOD 08/24/2024 12:03 PM EST [facility] Triglycerides 131 0 - 150 mg/dL LAB CHEMISTRY METHOD 08/24/2024 12:03 PM [facility] HDL 37(L) >=40 mg/dL LAB CHEMISTRY METHOD 08/24/2024 12:03 PM EST [facility] LDL Calculated 100 0 - 100 mg/dL LAB CHEMISTRY METHOD 08/24/2024 12:03 PM EST [facility] VLDL Cholesterol Stephen 26.2 mg/dL LAB CHEMISTRY METHOD 08/24/2024 12:03 PM EST [facility] Non HDL Chol. (LDL+VLDL) 126 <145 mg/dL LAB CHEMISTRY METHOD 08/24/2024 12:03 PM [facility] Chol/HDL Ratio 4.4 0.0 - 4.4 LAB CHEMISTRY METHOD 08/24/2024 12:03 PM [facility] Blood Venous blood specimen / Unknown Venipuncture / Unknown 08/24/2024 6:37 AM EST 08/24/2024 7:04 AM EST Rhonda Rogers MD LAB BLOOD ORDERABLES Final Resu lt [facility] [address] [place] [address], [place] [phone] * (ABNORMAL) Basic metabolic panel (08/24/2024 6:37 AM EST) Sodium 140 133 - 145 mmol/L LAB CHEMISTRY METHOD 08/24/2024 8:11 AM [facility] Potassium 3.5 3.5 - 5.5 mmol/L LAB CHEMISTRY METHOD 08/24/2024 8:11 AM [facility] Chloride 102 96 - 110 mmol/L LAB CHEMISTRY METHOD 08/24/2024 8:11 AM [facility] CO2 29 21 - 32 mmol/L LAB CHEMISTRY METHOD 08/24/2024 8:11 AM [facility] Anion Gap 9 3 - 11 LAB CHEMISTRY METHOD 08/24/2024 8:11 AM [facility] Glucose 248(H) 70 - 100 mg/dL LAB CHEMISTRY METHOD 08/24/2024 8:11 AM [facility] BUN 27(H) 5 - 25 mg/dL LAB CHEMISTRY METHOD 08/24/2024 8:11 AM [facility] Creatinine 0.88 0.50 - 1.10 mg/dL LAB CHEMISTRY METHOD 08/24/2024 8:11 AM [facility] eGFR 77 >=60 mL/min/1. 73m2 LAB CHEMISTRY METHOD 08/24/2024 8:11 AM [facility] Comment:Calculation based on the Chronic Kidney Disease Epidemiology Collaboration (CKD-EPI) equation refit without adjustment for race. BUN/Creatinine Ratio 30.7 LAB CHEMISTRY METHOD 08/24/2024 8:11 AM [facility] Calcium 9.8 8.5 - 10.5 mg/dL LAB CHEMISTRY METHOD 08/24/2024 8:11 AM [facility] Blood Venous blood specimen / Unknown Venipuncture / Unknown 08/24/2024 6:37 AM EST 08/24/2024 7:04 AM EST us Rhonda Rogers MD LAB BLOOD ORDERABLES Final [facility]u lt [facility] [address] [place] [address], * Cervical Cancer Screening: HPV (12/20/2012) Cervical Cancer Screening: HPV no interpretation , abstracted Historical Provider MD HEALTH MAINTENANCE Final Result from Last 3 Months or Most Recently Relevant to Health Maintenance Insurance [facility] Advance Directives * Full Code - [...] currently active code status orders. Care Teams Utility Bill Collector Relationship Specialty Start Date End Date Yadi Hogan DO [facility] [address] [place] [phone] PCP - General Internal Medicine 09/17/24
== END 2025-06-29 10:02 | disposition home or self-care (01) ==
LOC: HO.BBR 10:01
PROVIDERS: PCP Family Medicine; Visit Provider Internal Medicine
DX: D75.1 Secondary polycythemia (principal)
CPT/HCPCS: 85014; 85018; 99195

== ENCOUNTER 2025-07-31 09:58 | Outpatient (REF) | payer OTHER, SELFPAY ==
--- OUTSIDE RECORDS SUMMARY | 2025-02-25 06:48 | XMS_ITS ---
Author Organization [facility] Address [address], [place] [id number] Care Team Providers Care Ink Maker Name Role Phone ELOISA SMITH Primary Care Provide r [phone] REASON FOR REFERRAL Reason [address] [facility] fo r eval and tx of hyperparathyroid and elevated alk phos in addition to thyroid Diagnosis 1 Elevated alkaline ph osphatase level (R74.8) Diagnosis 2 Hyperparathyroidism (E21.3) Referral Organization [facility] Referring Provider First Name ELOISA Referring Provider Last Name ERIC DE SANTIAGO Referring Provider Speciality Internal M edicine Referred Organization [facility] ENDOCRINO LOGY and DIABETES Referred Address Fax # on request fax ,[place] Referred Provider Specialty Endocrinolog y General Notes Eun ALLAN [place] 02/12 08:04:24 PM > faxed to [facility], F: [phone], Eun ALLAN [place] 05/06/2025 12:20:31 PM > faxed to [facility] , f: [phone] Clinical Notes ELOISA SMITH 05/06/2025 12:17:50 PM >pls make sure snt to endo not SANJANA SRIVASTAVA Natalie G MA 06/21/2025 01:02:51 PM > see incoming docs pt was seen 05/28/25 Referral Priority Routine Referral Appointment Date 05/28/2025 REASON FOR VISIT lab results/plan SOCIAL HISTORY Sex Assigned At : Social History Observation Description Sex Assigned At Female PROBLEMS Problem Type ICD Code Onset Dates Problem Status W/U Status Risk SNOMED Code Notes Problem Hyperparathyroidism (E21.3) Active confirmed [id number] Encounters Encounter Location Date Provider Diagnosis [facility] [address] [place] [phone] ELOISA SMITH Hyperparathyroidism E21.3 and Elevated alkaline phosphatase level R74.8 ASSESSMENTS Encounter Date Diagnosis Assessment Notes Treatment Notes Treatment Clinical Notes Section Notes 02/25/2025 Hyperparathyroidism (ICD-10 - E21.3) 02/25/2025 Elevated alkaline phosphatase level (ICD-10 - R74.8) PLAN OF TREATMENT Referrals Referral Date Details 05/28/2025 05/28/2025, dr [facility] for eval and tx of hyperparathyroid and elevated alk phos in addition to thyroid , Fax # on request fax Next Appt Details Provider Name:ELOISA CARUSO, 10/07/2025 11:30:00 AM, [address] [place], [phone], Consultation Request Notes Referral Date Referring Provider Referred Provider Not es 02/25/2025 ELOISA SMITH , dr [facility] for eval a nd tx of hyperparathyroid and elevated alk phos in addition to thyroid
--- OUTSIDE RECORDS SUMMARY | 2025-05-06 07:30 | XMS_ITS ---
Author Organization [facility] Address [address], [place] [id number] Care Team Providers Care Aircraft Pilot Name Role Phone JORGE ALBERTOHAILEYLEOISA MELTON Primary Care Provide r [phone] REASON FOR VISIT fu in 4 mo MEDICATIONS Medication SIG (Take, Route, Frequency, Duration) Notes Start Date End Date Status Furosemide 40 MG 1 tablet Orally Once a day for 30 day(s) Active Sacubitril-Valsartan 24-26 MG 1 tablet Orally Twice a day Active Aspirin 81 81 MG 1 tablet Orally Once a day for 30 day(s) Active Atorvastatin Calcium 20 MG 1 tablet Oral ly Once a day for 30 day(s) Active Carvedilol 12.5 MG 1 tablet with food O rally Twice a day for 30 day(s) Active Nicotine 7 MG/24HR 1 patch to skin Transdermal Once a day for 14 day(s) 08/29/2024 Active Acetaminophen 325 MG 1 tablet as needed Orally every 6 hrs Active Nicotine 14 MG/24HR 1 patch to skin Transdermal Once a day for 14 day(s) 08/29/2024 Active methIMAzole 10 MG 1 tablet Orally Once a day for 30 day(s) Active amLODIPine Besylate 10 MG 1 tablet Orall y Once a day Active SOCIAL HISTORY Tobacco Use: Social History Observation Description Date Details (start date - stop date) Former Smoker NA - NA Sex Assigned At : Social History Observation Description Sex Assigned At Female Smoking Question Answer Notes Are you a: former smoker VITAL SIGNS Height 67.125 in 05/06/2025 Weight 211 lbs 05/06/2025 Blood pressure systolic 154 mm Hg 05/06/20 25 Blood pressure diastolic 80 mm Hg 025 BMI 32.92 kg/m2 05/06/2025 Encounters Encounter Location Date Provider Diagnosis [facility] [address] [place] [address] ELOISA SMITH Hyperparathyroidism E21.3 ; Primary hypertension I10 ; Congestive heart failure, unspecified HF chronicity, unspecified heart failure type I50.9 ; Hyperthyroidism E05.90 ; Polycythemia D75.1 ; Alkaline phosphatase elevation R74.8 and Knee pain, unspecified chronicity, unspecified laterality M25.569 ASSESSMENTS Encounter Date Diagnosis Assessment Notes Treatment Notes Treatment Clinical Notes Section Notes 05/06/2025 Hyperparathyroidism (ICD-10 - E21.3) Will be following up with endocrinology at [facility] for eval and treatment. 05/06/2025 Primary hypertension (ICD-10 - I10) Continue medications as directed by cardiology. Has been tolerating well. They have been adjusting her meds as needed (and did do testing for secondary causes such as renal artery stenosis earlier this year --testing was normal) 05/06/2025 Congestive heart failure, unspecified HF chronicity, unspecified heart failure type (ICD-10 - I50.9) off entresto x 3 wks, There has been some kind of an issue with her getting the refills from the pharmacy. Have explained the importance of her medication regimen given her history of hypertension and CHF. She will contact the pharmacy and cardiology after her office visit today. If not available at pharmacy will see if cardiology has any samples available for her or if they want her on alternative therapy while this is being cleared up. is tryng to clear up w/ cardiology 05/06/2025 Hyperthyroidism (ICD-10 - E05.90) march 2025 the tsh was 5.7 , improved Will continue current regimen and will monitor TSH.Has regular follow-up with endocrinology they have been adjusting her methimazole dosing. 05/06/2025 Polycythemia (ICD-10 - D75.1) cont fu w/ hematolgoy at [facility] has phlebotomy monthly 05/06/2025 Alkaline phosphatase elevation (ICD-10 - R74.8) Will continue to monitor LFTs. May have been elevated due to her heart failure. 05/06/2025 Knee pain, unspecifi ed chronicity, unspecified laterality (ICD-10 - M25.569) cont tx adn fu w/ ortho as planned PLAN OF TREATMENT Treatment Notes Assessment Notes Hyperparathyroidism Will be following up with endocrinology at [facility] for eval and treatment. Primary hypertension Continue medication s as directed by cardiology. Has been tolerating well. They have been adjusting her meds as needed (and did do testing for secondary causes such as renal artery stenosis earlier this year --testing was normal) Congestive heart failure, un specified HF chronicity, unspecified heart failure type off entresto x 3 wks, There has been some kind of an issue with her getting the refills from the pharmacy. Have explained the importance of her medication regimen given her history of hypertension and CHF. She will contact the pharmacy and cardiology after her office visit today. If not available at pharmacy will see if cardiology has any samples available for her or if they want her on alternative therapy while this is being cleared up. is tryng to clear up w/ cardiology Hyperthyroidism march 2025 the tsh was 5.7 , improved Will continue current regimen and will monitor TSH.Has regular follow-up with endocrinology they have been adjusting her methimazole dosing. Polycythemia cont fu w/ hematolgoy at [facility] has phlebotomy monthly Alkaline phosphatase elevation Will cont inue to monitor LFTs. May have been elevated due to her heart failure. Knee pain, unspecified chron icity, unspecified laterality cont tx adn fu w/ ortho as planned Next Appt Details Follow Up: prn . pls give co py of new endo ref. vv for glp 1 discussion, Reason: Provider Name:ELOISA CARUSO, 10/07/2025 11:30:00 AM, [address] [place], [address], Progress Notes * Examination Category Sub-Category Detail Notes Category Not es General Examination see abov e History and Physical Notes * HPI (History of Present Illness) Category Sub-Category Detail Notes Category Not es General Pt Is here today for a follow-up visit. The following is copied/reviewed/edited from previous: -fam hx ovarian cancer in mom. fam his colon ca in mom and h/o blood ca in mom colon cancer in maternal grandfather. mat aunt with breast ca -h/o OA of b/l knees. h/o chronic back pain - tobacco use -on iron and med from [employer] [facility] for heavy [employer]ista. [employer] Dr. lizama. Has been tolerating the iron supplements well and has routine follow-up with [employer]. has also been seeing heme/onc for PV Dr. Hogan, high hgb/hct and having monthly phlebotomy -Mammogram is up-to-date. -She was seen in the emergency room at [facility] on 08/24/2024. she was in hospital from 08/20/2024 through 08/24/2024 for acute respiratory failure with hypoxia, hypertensive emergency, polycythemia, CHF with EF of 35% and rhinovirus infection. They also thought she had a non-STEMI type II likely due to demand ischemia echo :Noted EF of 30 to 35% LVH with global hypokinesis moderate mitral regurgitation -For polycythemia with hematocrit of above 65 there was no respiratory component or desaturation on exam. She was referred for follow-up and was seen by heme-onc, Dr. Hogan 09/17/24. Testing for JAK2 mutation was reportedly negative they planned to start her on therapeutic phlebotomy monthly for 3 months with reassessment after that time -she was referred for fu w/ cards appt 10/23/24 notes requested DC meds were Tylenol, aspirin 81, atorvastatin 20, carvedilol 6.25 twice daily, furosemide 40 mg daily, Entresto 24-26 twice daily She also been referred to endocrinology and was seen by [facility] endocrinology on 09/25/2024 for subclinical hyperthyroidism. Thyroid uptake and scan have been scheduled for October 24 and is seeing them for hyperparathyroid as well. - quit smoking but has unfortunately gained a bit of weight has had worsening of her knee pain, no instability, is seeing orthopedics recent labs reviewed with patient today: Your recent labs show:Serum calcium level was okay/slightly elevated but parathyroid hormone is elevated. You have been following up with endocrinology for hyperparathyroidism and should continue to do so. Vitamin D levels are low at 15 and you benefit from [id number] supplement of your choice 2000 to 4000 IU daily .Your iron counts are low. Your fasting glucose, kidney function are good Your liver tests were good with the exception of alk phos which is slightly elevated.. Cholesterol panel is good Thyroid function shows sluggish thyroid with TSH above 10. -------- ROS GENERAL: No malaise, significant weight loss or fever see hpi HEENT: No changes in vision or hearing. No sore throat. No neck pain. No lumps or masses noted in neck. RESPIRATORY: No cough, wheezing or shortness of breath CARDIOVASCULAR: No chest pain, leg swelling or palpitations GI: No abdominal discomfort, blood in stools or black stools : No incontinence. No dysuria. No gross hematuria. No nocturia. MUSCULOSKELETAL: see hpi, she has chronic knee pain L>R which has been bothering her more recently SKIN: No lesions, rash or itching PSYCH: No sleep disturbance, mood disorder or recent psychosocial stressors. ENDOCRINE: No cold or heat intolerance, polyuria, polydipsia or goiter. HEME/LYMPH: No easy bruising or bleeding. No lymph node enlargement or tenderness. NEURO: No persistent headache, syncope, seizures, weakness or numbness -------- PE APPEARANCE: Alert and in no acute distress HEENT: NCAT, EOMI, nl conjunctiva. external ears normal. Neck is supple. No palpable lymphadenopathy. No thyromegaly. HEART: RRR with normal S1 and S2 LUNG: clear to auscultation ABDOMEN: Bowel sounds normoactive, soft, non-tender, non -distended BACK: No pain to palpation with good flexion and extension EXTREMITIES: Extremities warm and without edema NEURO: Awake, alert and oriented x 3 SKIN: Skin color, texture, turgor normal. No rashes or lesions.
--- OUTSIDE RECORDS SUMMARY | 2025-05-18 04:45 | XMS_ITS ---
Author Organization [facility] Address [address] [place], [place] [phone] Care Team Providers Care Airline Ticket Agent Name Role Phone ELOISA SMITH Primary Care Provide r [phone] REASON FOR VISIT 39/vv for glp 1 discussion/Patient cell [phone] MEDICATIONS Medication SIG (Take, Route, Frequency, Duration) [...] Problem Obesity (BMI 30-39.9) (E66.9) Active confirmed [id number] Problem Primary osteoarthritis of both knees (M17.0) Active confirmed 469245894 Problem Diabetes type 2, controlled (E11.9) Active confirmed 311126661 Problem Primary polycythemia (D45) Active confirmed 805351551 Encounters Encounter Location Date Provider Diagnosis [facility] [address] [place] [address] 5 ELOISA SMITH Obesity (BMI 30-39.9) E66.9 ; Congestive heart failure, unspecified HF chronicity, unspecified heart failure type I50.9 ; Primary osteoarthritis of both knees M17.0 ; History of KS (myocardial infarction) I25.2 ; Hyperparathyroidism E21.3 ; [...] OA symptoms and complaints. 05/18/2025 History of KS (myocardial infarction) (ICD-10 - I25.2) See HPI [...] her OA symptoms and complaints. History of KS (myocardial infarction) Se e HPI for details. Hyperparathyroidism will be fu w/ endo c at [facility] Primary hypertension Continue current me dication regimen [...] Next Appt Details Follow Up: prn,3 Months, [place] son: Provider Name:ELOISA CARUSO, 10/07/2025 11:30:00 AM, [address] [facility], [place], [address], Progress Notes * Examination Category Sub-Category Detail Notes Category Not es General Examination see abov e History and Physical Notes * HPI (History of Present Illness) Category Sub-Category Detail Notes Category Not es General Pt Is here today for a follow-up visit. This is a Doximity video visit. Patient is at home and provider is at the [place] office location. She gives permission for visit [...] tobacco use -on iron and med from inside channel account manager for heavy evangelista. inside channel account manager Dr. lizama. Has been tolerating the iron supplements well and has routine follow-up with COMMUNICATION SKILLS INSTRUCTOR. Mammogram is up-to-date. She was seen in the emergency room at [facility] on 08/24/2024. she was in hospital [...] referred to endocrinology and was seen by [facility] endocrinology on 09/25/2024 for subclinical [...] low at 15 and you benefit from zacx-ewt-civecfw supplement of your choice 2000 to 4000 IU daily. Your iron counts are low. Your fasting glucose, kidney function are good Your liver tests were good with the exception of alk phos which is slightly elevated.. Cholesterol panel is good Thyroid function shows sluggish thyroid with TSH above 10. Please make sure you have follow-up with your laundry machine tender so that they can adjust the dose [...]
--- OUTSIDE RECORDS SUMMARY | 2025-05-18 07:08 | XMS_ITS ---
Author Organization [facility] Address [address] [place], [place] [phone] Care Team Providers Care Clinical Sciences Professor Name Role Phone ELOISA SMITH Primary Care Provide r [phone] REASON FOR VISIT RX needs PA SOCIAL HISTORY Sex Assigned At : Social History Observation Description Sex Assigned At Female Encounters Encounter Location Date Provider Diagnosis [facility] [address] [place] [address] 05/18/2025 ELOISA SMITH PLAN OF TREATMENT Next Appt Details Provider Name:ELOISA CARUSO, 10/07/2025 11:30:00 AM, [address] [place], [address],
--- OUTSIDE RECORDS SUMMARY | 2025-05-20 09:23 | XMS_ITS ---
Author Organization [facility] Address [address] [place], [place] [phone] Care Team Providers Care Vice President Of Instruction Name Role Phone ELOISA SMITH Primary Care Provide r [phone] REASON FOR VISIT snd labs SOCIAL HISTORY Sex Assigned At : Social History Observation Description Sex Assigned At Female Encounters Encounter Location Date Provider Diagnosis [facility] [address] [place] [address] 05/20/2025 ELOISA SMITH PLAN OF TREATMENT Next Appt Details Provider Name:ELOISA CARUSO, 10/07/2025 11:30:00 AM, [address] [place], [address],
--- OUTSIDE RECORDS SUMMARY | 2025-06-08 10:50 | XMS_ITS ---
Author Organization [facility] Address [address] [place], [place] [phone] Care Team Providers Care Fiberglass Dowel Drawing Operator Name Role Phone ELOISA SMITH Primary Care Provide r [phone] REASON FOR VISIT ozempic denial - appeal SOCIAL HISTORY Sex Assigned At : Social History Observation Description Sex Assigned At Female Encounters Encounter Location Date Provider Diagnosis [address] [address] 06/08/2025 ELOISA SMITH PLAN OF TREATMENT Next Appt Details Provider Name:ELOISA CARUSO, 10/07/2025 11:30:00 AM, [address] [place] [address], [phone],
--- OUTSIDE RECORDS SUMMARY | 2025-06-26 10:27 | XMS_ITS ---
Author Organization [facility] Address [address] [place], [place] [phone] Care Team Providers Care Char Conveyor Tender Name Role Phone ELOISA SMITH Primary Care Provide r [phone] REASON FOR VISIT ozempic approval MEDICATIONS Medication SIG (Take, Route, Frequency, Duration) Notes Start Date End Date Status Ozempic (0.25 or 0.5 MG/DOSE) 2 MG/3ML 0.25 mg Subcutaneous weekly for 30 days E66.9, I50.9, M17.0, E11.9, , I10, E78.00 Active SOCIAL HISTORY Sex Assigned At : Social History Observation Description Sex Assigned At Female Encounters Encounter Location Date Provider Diagnosis [address] [address] 06/26/2025 ELOISA SMITH Obesity (BMI 30-39.9) E66.9 [...] Provider Name:ELOISA CARUSO, 10/07/2025 11:30:00 AM, [address] [place], [address],
--- OUTSIDE RECORDS SUMMARY | 2025-07-06 07:32 | XMS_ITS ---
Author Organization [facility] Address [address] [place], [place] [id number] Care Team Providers Care Assistant Coach Name Role Phone ELOISA SMITH Primary Care Provide r [phone] REASON FOR VISIT Ozempic training booked SOCIAL HISTORY Sex Assigned At : Social History Observation Description Sex Assigned At Female Encounters Encounter Location Date Provider Diagnosis [address] [address] 07/06/2025 ELOISA SMITH PLAN OF TREATMENT Next Appt Details Provider Name:ELOISA CARUSO, 10/07/2025 11:30:00 AM, [address] [place] [address], [phone],
--- OUTSIDE RECORDS SUMMARY | 2025-07-15 07:30 | XMS_ITS ---
Author Organization [facility] Address [address] [place], [place] [id number] Care Team Providers Care Canal Equipment Maintenance Supervisor Name Role Phone ELOISA SMITH Primary Care Provide r [phone] [place], NURSING Unavailable [phone] REASON FOR VISIT N/39/Ozempic instruction SOCIAL HISTORY Sex Assigned At : Social History Observation Description Sex Assigned At Female Encounters Encounter Location Date Provider Diagnosis [address] [address] 07/15/2025 NURSING [place] PLAN OF TREATMENT Next Appt Details Provider Name:ELOISA CARUSO, 10/07/2025 11:30:00 AM, [address] [place], [address],
--- OUTSIDE RECORDS SUMMARY | 2025-07-24 11:11 | XMS_ITS ---
Author Organization [facility] Address [address] [place], [place] [id number] Care Team Providers Care Director Information Name Role Phone ELOISA SMITH Primary Care Provide r [phone] REASON FOR VISIT CM/ BP SOCIAL HISTORY Sex Assigned At : Social History Observation Description Sex Assigned At Female Encounters Encounter Location Date Provider Diagnosis [facility] [address] [place] [phone] 07/24/2025 ELOISA SMITH PLAN OF TREATMENT Next Appt Details Provider Name:ELOISA CARUSO, 10/07/2025 11:30:00 AM, [address] [place], [address],
--- OUTSIDE RECORDS SUMMARY | 2025-07-31 11:38 | XMS_ITS | Patient Health Record ---
Author Organization [facility] Address [address], [place] [id number] Care Team Providers Care Electrical Parts Reconditioner Name Role Phone TELLYASHIASHAKILA MELTONLA Primary Care Provide r [phone] [place], NURSING Unavailable [phone] MIGUE MARTINEZ Unavailable [phone] ZINA DEVINE Unavailable [phone] YI JONES Unavailable [phone] ALLERGIES No Known Allergies REASON FOR REFERRAL Reason 54 yr old female wit h CHF recent admission to [facility] Needs post hospital cardiology followup (08/27/24 W appt) Diagnosis 1 Congestive heart ray lure, unspecified HF chronicity, unspecified heart failure type (I50.9) Diagnosis 2 RBBB (I45.10) Diagnosis 3 Left anterior hemibl ock (I44.4) [facility] Referring Provider First Name MIGUE Referring Provider Last Name MICHELLE Referring Provider Speciality Internal M edicine Referred Provider LASHON HOWARD Referred Provider Specialty Cardiovascul ar Disease General Notes Patti ALLAN MA 1 10/27/2023 12:27:45 PM > faxed note and referral , Tamy ALLAN Referrals 08/27/2024 02:49:51 PM > medical referral and notes have been faxed to [facility] at [phone] Priscilla P MA 09/01/2024 04:13:11 PM > faxed referral and ov notes to [facility] SANJANA Lisa K Referrals 09/24/2024 12:32:07 PM > per 08/29/24 visit > she will see cardiology Dr Howard appt early october, Tamy ALLAN Referrals 10/01/2024 09:19:39 AM > No Referral Required, Dr. Howard is in [facility] network Referral Priority Routine Referral Appointment Date 10/16/2024 Reason Lashell De Leon 54 yr old female with undetectable tsh, hyperthyroid, [facility] admit for CHF, uncontrolled HTN please see Diagnosis 1 Hyperthyroidism (E05 .90) Referral Organization [facility] Juan patel Referring Provider First Name MIGUE Referring Provider Last Name MICHELLE Referring Provider Speciality Internal edicine Referred Organization [facility] Referred Provider Specialty Endocrinolog y General Notes MIGUE MARTINEZ 2023 12:52:38 PM > [facility] endocrinology, , MIGUE MARTINEZ 09/15/2024 10:03:17 AM > states has a thyroid scan 09/19-. PLease fax the referral with last office note and recent labs to [facility] endocrinology, FAX:[phone], No Referral Required, [facility] endo providers are in [facility] network, referral has been faxed to [phone], Tamy ALLAN Referrals 09/18/2024 12:26:34 PM > appointment details receive from [facility] End[facility], the patient has been scheduled [...] anterior fascic ular block (I44.4) Referral Organization [facility] Ruel patel Referring Provider First Name MIGUE Referring Provider Last Name MICHELLE Referring Provider Speciality Internal edicine Referred Provider Specialty Cardiovascul ar Disease General Notes MIGUE MARTINEZ 2023 01:04:26 PM > Dr Cheney or Mirtha carrillo [facility], [phone] [address] [place] [address], Faviola ALLAN Stuffing Machine Operator 09/02/2024 09:25:47 AM > FAXED REF AND NOTES TO [facility], Tamy ALLAN Referrals 10/02/2024 11:19:15 AM > per 09/01/24 encounter > She will call [facility] if not heard from them by Sunday afternoon and she can use copy referral with EKG ttached to make consult apptSANJANA Lisa K Referrals 10/02/2024 11:26:50 AM > per 10/01/24 encounter >was ref to and seen by cards dr cheney [facility] Referral Priority Urgent Reason any PT for eval and tx of b/l knee pain. pls print. Diagnosis 1 Pain in right knee ( M25.561) Referral Organization [facility] Referring Provider First Name ELOISA Referring Provider Last Name ERIC DE SANTIAGO Referring Provider Speciality Internal edicine Referred Provider Specialty Physical The rapist Referral Priority Routine Reason (faxed 01/05/25) [facility] for eval and treatment of bilateral knee pain Diagnosis 1 Pain in left knee (M 25.562) Referral Organization [facility] Referring Provider First Name ELOISA Referring Provider Last Name ERIC DE SANTIAGO Referring Provider Speciality Internal edicine Referred Provider PRIYA SAHA Referred Provider Specialty Orthopedic S urgery General Notes Eun ALLAN MA 12/14 11:25:58 AM > form, demo, imaging and last ov faxed to [facility] pt previously established with their office . , F : [phone], Cristina ALLAN P Admin 01/13/2025 03:07:02 PM > no referral required as doctor is in network with [facility]>faxed to [facility] at [phone]>encounter closed Referral Priority Routine Referral Appointment Date 01/13/[address] [facility] fo r eval and tx of hyperparathyroid and elevated alk phos in addition to thyroid Diagnosis 1 Elevated alkaline ph osphatase level (R74.8) Diagnosis 2 Hyperparathyroidism (E21.3) Referral Organization [facility] Referring Provider First Name ELOISA Referring Provider Last Name ERIC DE SANTIAGO Referring Provider Speciality Internal edicine Referred Organization [facility] Referred Address Fax # on request fax ,[place] Referred Provider Specialty Endocrinolog y General Notes Eun ALLAN SIOBHAN 02/12 08:04:24 PM > faxed to [facility], F: [phone], Eun ALLAN SIOBHAN 05/06/2025 12:20:31 PM > faxed to [facility] , f: [phone] Clinical Notes ELOISA SMITH 05/06/2025 12:17:50 PM [...] Diabetes type 2, controlled (E11.9) Active confirmed 547649164 Problem Low back pain (M54.5) Active confirmed Low back pain (340661471) Problem Hyperthyroidism (E05.90) Active confirmed 33183480 Problem Left ventricular hypertrophy (I51.7) Active confirmed 83552897 Problem Obesity (BMI 30-39.9 ) (E66.9) Active confirmed 669046468 Problem Obesity (BMI 30.0-34.9) (E66.9) Active confirmed 936308370629437 Problem Hypercalcemia (E83.52) Active confirmed 73242080 Problem Other chronic pain (G89.29) Active confirmed 45015233 Problem Bifascicular block (I45.2) Active confirmed 56696554 Problem Other cervical disc degeneration, mid-cervical region (M50.32) Active confirmed Degeneration of cervical intervertebral disc (22890135) Problem Tobacco use (Z72.0) Active confirmed 36 9799627 Problem Primary osteoarthritis of both knees (M17.0) Active confirmed 237111911 Problem Iron deficiency anemia due to chronic blood loss (D50.0) Active confirmed 859130521 Problem Primary osteoarthritis of right knee (M17.11) Active confirmed 119480554140842 Problem Multinodular thyroid (E04.2) Active confirmed 317876343 Problem Hyperparathyroidism (E21.3) Active confirmed 62150869 Problem RBBB (I45.10) Active confirmed 97085082 Problem Polycythemia (D75.1) Active confirmed 1 [id number] juan carlos 09/2024; Problem Leukocytosis, unspecified type (D72.829) Active confirmed 124470959 Problem Family history of ovarian cancer (Z80.41) Active confirmed 495295433 dx age 68. Problem Serum calcium elevated (E83.52) Active confirmed 90209684 Problem Mitral valve insufficiency, unspecified etiology (I34.0) Active confirmed 99419072 Problem Primary hypertension (I10) Active confirmed 95307352 Problem History of vitamin D deficiency (Z86.39) Active confirmed 19683487499475 Problem History of TX (myocardial infarction) (I25.2) Active confirmed 636151706 Problem Family history of colon cancer in mother (Z80.0) Active confirmed 379870145 age 60 Problem Osteoarthritis of both knees, unspecified osteoarthritis type (M17.0) Active confirmed 443591747840804 Problem High cholesterol (E78.00) Active confirmed 38795180 Problem Thyromegaly (E01.0) Active confirmed 37 72378 Problem Systolic CHF, chroni c (I50.22) Active confirmed 858130340 Problem Congestive heart failure, unspecified HF chronicity, unspecified heart failure type (I50.9) Active confirmed 25409813 Problem LAFB (left anterior fascicular block) (I44.4) Active confirmed 56658191 Problem Primary polycythemia (D45) Active confirmed 605583507 VITAL SIGNS Blood pressure diastolic 80 mm Hg 05/06/2025 Height 67.125 in 05/06/2025 Blood pressure systolic 154 mm Hg 05/06/2025 Weight 211 lbs 05/06/2025 BMI 32.92 kg/m2 05/06/2025 Encounters Encounter Location Date Provider Diagnosis [place] [id number] [address] [place] [address] 4 ELOISA SMITH [place] [id number] [address] [place] [address] 4 MIGUE MARTINEZ History of CHF (congestive heart failure) Z86.79 ; Elevated blood pressure reading R03.0 ; Screening for deficiency anemia Z13.0 ; Other fatigue R53.83 ; Polycythemia D75.1 ; Cardiomegaly I51.7 ; LVH (left ventricular hypertrophy) I51.7 ; Moderate mitral regurgitation I34.0 ; RBBB I45.10 and Left anterior hemiblock I44.4 [place] [id number] [address] [place] [address] 4 [place] [id number] 4 ELOISA SMITH Elevated glucose R73.09 ; Serum calcium elevated E83.52 and Low TSH level R79.89 [place] [id number] 4 [place] [id number] 4 MIGUE MARTINEZ Systolic CHF, chronic I50.22 ; Mitral valve insufficiency, unspecified etiology I34.0 ; Polycythemia D75.1 ; Left ventricular hypertrophy I51.7 ; RBBB I45.10 ; LAFB (left anterior fascicular block) I44.4 ; Low TSH level R79.89 ; Hyperthyroidism E05.90 ; Prediabetes R73.03 ; History of TX (myocardial infarction) I25.2 ; Tobacco user Z72.0 and Hypercalcemia E83.[address] [address] 4 MIGUE MARTINEZ Bifascicular block I45.2 and Systolic congestive heart failure, unspecified HF chronicity I50.20 [place] [id number] [address] [place] [address] 4 NURSING [place] Bifascicular block I45.2 and Systolic congestive heart failure, unspecified HF chronicity I50.20 [facility] [address] [place] [id number] 4 ELOISA SMITH [address] 4 ELOISA SMITH Hyperthyroidism E05.90 [place] [id number] 4 ELOISA LIMACOLASACCO [address] 4 ELOISA LIMACOEZIOACCO [place] [id number] 4 ELOISA LIMACOLASACCO [address] 4 ELOISA LIMACOANYI Physical exam Z00.00 ; Hyperthyroidism E05.90 ; Tobacco use Z72.0 ; Primary hypertension I10 ; Systolic CHF, chronic I50.22 ; Polycythemia D75.1 and IFG (impaired fasting glucose) R73.[address] [address] 4 ELOISA LIMACOLASTANYA [place] [id number] 4 [facility] Encounter for immunization Z23 [facility] [address] [place] [address] 5 ELOISA SMITH [facility] [address] [place], [place] [address] 5 [facility] Tobacco user Z72.0 [place] [id number] 5 ELOISA SMITH Left knee pain, unspecified chronicity M25.562 [place] [id number] 5 ELOISA LIMACOEZIOACCO [place] [id number] 5 ELOISA LIMACOANYI Primary hypertension I10 ; Tobacco use Z72.0 ; Congestive heart failure, unspecified HF chronicity, unspecified heart failure type I50.9 ; Family history of colon cancer in mother Z80.0 ; Polycythemia D75.1 ; Weight gain R63.5 ; Pain in left knee M25.562 ; Pain in right knee M25.561 ; Hyperthyroidism E05.90 and Multinodular thyroid E04.2 [place] [id number] 5 ELOISA LIMACOEZIOACCO [place] [id number] 5 ELOISA LIMACOEZIOACCO Primary hypertension I10 ; Systolic CHF, chronic I50.22 ; Hyperthyroidism E05.90 ; History of TX (myocardial infarction) I25.2 ; High cholesterol E78.00 ; IFG (impaired fasting glucose) R73.01 ; Polycythemia D75.1 ; Leukocytosis, unspecified type D72.829 ; Iron deficiency E61.1 ; Serum calcium elevated E83.52 and History of vitamin D deficiency Z86.39 [place] [id number] 5 ELOISA SMITH Hyperparathyroidism E21.3 and Elevated alkaline phosphatase level R74.[address] [address] 5 ELOISA SMITH Hyperparathyroidism E21.3 ; Primary hypertension I10 ; Congestive heart failure, unspecified HF chronicity, unspecified heart failure type I50.9 ; Hyperthyroidism E05.90 ; Polycythemia D75.1 ; Alkaline phosphatase elevation R74.8 and Knee pain, unspecified chronicity, unspecified laterality M25.569 [place] [id number] 5 ELOISA SMITH Obesity (BMI 30-39.9) E66.9 ; Congestive heart failure, unspecified HF chronicity, unspecified heart failure type I50.9 ; Primary osteoarthritis of both knees M17.0 ; History of TX (myocardial infarction) I25.2 ; Hyperparathyroidism E21.3 ; Primary hypertension I10 ; High cholesterol E78.00 ; Diabetes type 2, controlled E11.9 ; Alkaline phosphatase elevation R74.8 ; Iron deficiency E61.1 and Primary polycythemia D45 [place] [id number] 5 ELOISA SMITH [place] [id number] 5 ELOISA SMITH [place] [address] 5 ELOISA SMITH [place] [id number] 5 ELOISA SMITH Obesity (BMI 30-39.9) E66.[address] [address] [address] ELOISA SMITH [address] [address] 5 NURSING [place] [id number] 5 ELOISA KRAKOWIAKCOLASACCO ASSESSMENTS Encounter Date Diagnosis Assessment Notes Treatment [...] Will be following up with endocrinology at [facility] for eval and treatment. 11/10/2024 Left [...] - I50.22) she will see cardiology Dr Howard appt early october; she continues her current CV [...] - D75.1) she will call hematology Dr Sawn for post hospital consult for polycythemia. feels [...] Dr [facility] office to discuss this. 01/09/2025 History of TX (myocardial infarction) (ICD-10 - I25.2) 05/18/2025 History of TX (myocardial infarction) (ICD-10 - I25.2) See HPI for details. 05/06/2025 Polycythemia (ICD-10 - D75.1) cont fu w/ hematolgoy at [facility] has phlebotomy monthly 01/09/2025 High cholesterol (ICD-10 [...] [facility] office to discuss this. 10/01/2024 Polycythemia [...] Dr Howard'[facility] office to discuss this. 01/09/2025 IFG (impaired fastin g glucose) (ICD-10 - R73.01) 12/31/2024 Pain in left knee (ICD-10 - M25.562) have ref to PT which she will schedule at facility of her choice and have ref to orthopedics 08/29/2024 Hyperthyroidism (ICD-10 - E05.90) she will use the [facility] endocrinoloy referral to bring there to [...] office to discuss this. 08/29/2024 History of TX (myocardial infarction) (ICD-10 - I25.2) feels good [...] visit as per hpi PLAN OF TREATMENT Future Test Test Name [...] Thyroid 03/20/2024 Next Appt Details Provider Name:ELOISA CARUSO, 10/07/2025 11:30:00 AM, [address] [place], [address], Insurance Providers Payer Name Payer Address Payer Phone Subscriber Number Group Number Insured Name Patient Relationship to Insured Coverage Start Date Coverage End Date [facility] [address] [place] [id number] GRANT BIRD Self - patient is the insured 1 MEDICAL (GENERAL) HISTORY Surgical History Surgery Date(Month/Year) 1987 Hospitalization History Reason Date(Month/Year) as above [facility]: HTN, Pulm Edema, Acute Resp Failure , Cardiomyopathy [id number]
--- OUTSIDE RECORDS SUMMARY | 2025-07-31 11:38 | XMS_ITS | Clinical Summary ---
Author Organization [facility] Address [address] [place] [address] Care Team Providers Care Dry Pan Charger Name Role Phone Sameer Rowland MD Primary [...] age to complete this topic Care Teams Dry Pan Charger Relationship Specialty Start Date End Date Sameer Rowland MD PCP - General Hematology and Oncology 06/04/17
--- OUTSIDE RECORDS SUMMARY | 2025-07-31 11:38 | XMS_ITS | Clinical Summary ---
Author Organization [facility] Address [address] [place] [address] Phone Care Team Providers Care Electric Tape Slitter Name Role Phone Yadi Hogan DO Primary [...] Date Hypertensive emergency 08/20/2024 Acute pulmonary edema ([facility] V24, [facility] V28) 08/20/2024 NSTEMI (non-ST elevated myoc ardial infarction) ([facility] V24, [facility] V28) 08/20/2024 Acute respiratory failure, u nspecified whether with hypoxia or hypercapnia ([facility] V24, [facility] V28) 08/20/2024 Encounters Date Type Department Care Team Description 05/27/2025 3:45 PM EDT Office Visit [facility] Hematology Oncology [address] [place] [address] Gregg Swan MD Polycythemia (Primary [...] Safety Answer Date Record ed Physical Abuse Unrecognized value 08/21/2024 Verbal Abuse Unrecognized value 08/21/2024 Comments Unknown Sex and Gender Information [...] Description 09/30/2025 1:45 PM EST Office Visit [facility] Hematology Oncology [address] [place] [phone] Gregg Swan MD [address] [place] [address] Health Maintenance Due Date Last Done Comments Breast Cancer Screening 1968 Colorectal Cancer Screening: Colonoscopy 1968 DTaP,Tdap,and Td Vaccines (1 - Tdap) 1987 Hepatitis B Vaccines (1 of 3 - 19+ 3-dose series) 1987 Pneumococcal Vaccine: 50+ Years (1 of 2 - PCV) 1987 Zoster Vaccines (1 of 2) 1987 Cervical Cancer Screening: Pap Smear 12/21/2015 12/20/2012, 12/20/2012 HIV Screening 09/12/2022 Hepatitis C Screening 09/12/2022 Social Influencers of Health Screening 09/12/2022 Depression Screening 10/15/2024 COVID-19 Vaccine ( season) 2025 12/16/2021, 04/19/2021, 03/22/2021 Influenza Vaccine (#1) 2025 10/02/2024 Hypertension/CHF/CAD Annual BMP Blood Test 08/24/2025 08/24/2024, 08/23/2024, 08/22/2024, Additional history exists Cholesterol Screening (Lipid Panel) 08/24/2029 08/24/2024 RSV Immunization Adult Patients (1 - 1-dose 75+ series) 2043 HIB Vaccines Aged Out No longer eligi [...] PM EDT) WBC 15.6(H) 4.8 - 10.8 K/[facility] LAB HEMETOLOGY METHOD 05/27/2025 7:08 PM EDT [facility] RBC 8.80(H) 3.80 - 4.80 M/mcL LAB HEMETOLOGY METHOD 05/27/2025 7:08 PM [facility] Hemoglobin 15.4 11.5 - 16.0 g/dL LAB HEMETOLOGY METHOD 05/27/2025 7:08 PM [facility] Hematocrit 53.0(H) 35.0 - 47.0 % LAB HEMETOLOGY METHOD 05/27/2025 7:08 PM [facility] MCV 60.9(L) 79.0 - 98.0 FL LAB HEMETOLOGY METHOD 05/27/2025 7:08 PM [facility] MCH 17.7(L) 27.0 - 32.0 pcg LAB HEMETOLOGY METHOD 05/27/2025 7:08 PM [facility] MCHC 29.1(L) 32.0 - 37.0 g/dL LAB HEMETOLOGY METHOD 05/27/2025 7:08 PM [facility] RDW 22.6(H) 11.0 - 15.0 % LAB HEMETOLOGY METHOD 05/27/2025 7:08 PM [facility] Platelets 256 130 - 400 K/mcL LAB HEMETOLOGY METHOD 05/27/2025 7:08 PM [facility] MPV LAB HEMETOLOGY METHOD 05/27/2025 7:08 PM [facility] Comment:Not Measured NRBC 0.3 <1.0 % LAB HEMETOLOGY METHOD 05/27/2025 7:08 PM [facility] NRBC Absolute 0.04 <0.10 K/mcL LAB HEMETOLOGY METHOD 05/27/2025 7:08 PM [facility] Neutrophils Relative 67.9 % LAB HEMETOLOGY METHOD 05/27/2025 7:08 PM [facility] Lymphocytes Relative 19.8 % LAB HEMETOLOGY METHOD 05/27/2025 7:08 PM [facility] Monocytes Relative 4.9 % LAB HEMETOLOGY METHOD 05/27/2025 7:08 PM [facility] Eosinophils Relative 6.0 % LAB HEMETOLOGY METHOD 05/27/2025 7:08 PM [facility] Basophils Relative 0.6 % LAB HEMETOLOGY METHOD 05/27/2025 7:08 PM [facility] Immature Granulocytes Relative 0.8 % LAB HEMETOLOGY METHOD 05/27/2025 7:08 PM [facility] Neutrophils Absolute 10.54(H) 1.50 - 7.00 K/mcL LAB HEMETOLOGY METHOD 05/27/2025 7:08 PM [facility] Lymphocytes Absolute 3.08 1.00 - 5.00 K/mcL LAB HEMETOLOGY METHOD 05/27/2025 7:08 PM [facility] Monocytes Absolute 0.76 0.20 - 1.00 K/mcL LAB HEMETOLOGY METHOD 05/27/2025 7:08 PM [facility] Eosinophils Absolute 0.94(H) 0.00 - 0.50 K/mcL LAB HEMETOLOGY METHOD 05/27/2025 7:08 PM [facility] Basophils Absolute 0.10 0.00 - 0.20 K/mcL LAB HEMETOLOGY METHOD 05/27/2025 7:08 PM [facility] Immature Granulocytes Absolute 0.12(H) 0.00 - 0.03 K/mcL LAB HEMETOLOGY METHOD 05/27/2025 7:08 PM [facility] Blood Venous blood specimen / Unknown Venipuncture / Unknown 05/27/2025 3:53 PM EDT 05/27/2025 4:28 PM EDT Gregg Swan MD LAB BLOOD ORDERABLES Final R esult [facility] [address] [place] [address], [place] [phone] * Erythropoietin (05/27/2025 3:53 PM EDT) [facility] Erythropoietin 2.6 2.6 - 18.5 mIU/mL 06/01/2025 4:58 PM EDT [facility] Comment: Test performed at [facility], [address], [place] [address] Rose Fabian MD, PhD - Group Worker Blood Venous blood specimen / Unknown Venipuncture / Unknown 05/27/2025 3:53 PM EDT 05/27/2025 4:27 PM EDT Gregg Swan MD LAB BLOOD ORDERABLES Final R esult [facility] [address] [place] [address] * (ABNORMAL) Reticulocyte count (05/27/2025 3:53 PM EDT) [facility] Retic Ct Abs 0.120(H) 0.030 - 0.090 M/mcL LAB HEMETOLOGY METHOD 05/27/2025 7:08 PM EDT [facility] Retic Ct Pct 1.3 0.7 - 1.7 % LAB HEMETOLOGY METHOD 05/27/2025 7:08 PM EDT [facility] Immature Retic Fract 27.7(H) 2.3 - 15.9 % LAB HEMETOLOGY METHOD 05/27/2025 7:08 PM EDT [facility] Reticulocyte Hemoglobin 18.6(L) >29.0 pcg LAB HEMETOLOGY METHOD 05/27/2025 7:08 PM EDT [facility] Blood Venous blood specimen / Unknown Venipuncture / Unknown 05/27/2025 3:53 PM EDT 05/27/2025 4:28 PM EDT us Gregg Swan MD LAB BLOOD ORDERABLES Final R esult [facility] [address] [place] [address], [place] [phone] * (ABNORMAL) Lipid panel with reflex to direct LDL (08/24/2024 6:37 AM EST) Cholesterol 163 0 - 200 mg/dL LAB CHEMISTRY METHOD 08/24/2024 12:03 PM EST [facility] Triglycerides 131 0 - 150 mg/dL LAB CHEMISTRY METHOD 08/24/2024 12:03 PM [facility] HDL 37(L) >=40 mg/dL LAB CHEMISTRY METHOD 08/24/2024 12:03 PM EST [facility] LDL Calculated 100 0 - 100 mg/dL LAB CHEMISTRY METHOD 08/24/2024 12:03 PM EST [facility] VLDL Cholesterol Stephen 26.2 mg/dL LAB CHEMISTRY METHOD 08/24/2024 12:03 PM EST [facility] Non HDL Chol. (LDL+VLDL) 126 <145 mg/dL LAB CHEMISTRY METHOD 08/24/2024 12:03 PM [facility] Chol/HDL Ratio 4.4 0.0 - 4.4 LAB CHEMISTRY METHOD 08/24/2024 12:03 PM [facility] Blood Venous blood specimen / Unknown Venipuncture / Unknown 08/24/2024 6:37 AM EST 08/24/2024 7:04 AM EST us Rhonda Rogers MD LAB BLOOD ORDERABLES Final Resu lt [facility] [address] [place] [address], [place] [phone] * (ABNORMAL) Basic metabolic panel (08/24/2024 6:37 AM EST) Sodium 140 133 - 145 mmol/L LAB CHEMISTRY METHOD 08/24/2024 8:11 AM [facility] Potassium 3.5 3.5 - 5.5 mmol/L LAB CHEMISTRY METHOD 08/24/2024 8:11 AM [facility] Chloride 102 96 - 110 mmol/L LAB CHEMISTRY METHOD 08/24/2024 8:11 AM [facility] CO2 29 21 - 32 mmol/L LAB CHEMISTRY METHOD 08/24/2024 8:11 AM [facility] Anion Gap 9 3 - 11 LAB CHEMISTRY METHOD 08/24/2024 8:11 AM [facility] Glucose 248(H) 70 - 100 mg/dL LAB CHEMISTRY METHOD 08/24/2024 8:11 AM [facility] BUN 27(H) 5 - 25 mg/dL LAB CHEMISTRY METHOD 08/24/2024 8:11 AM [facility] Creatinine 0.88 0.50 - 1.10 mg/dL LAB CHEMISTRY METHOD 08/24/2024 8:11 AM [facility] eGFR 77 >=60 mL/min/1. 73m2 LAB CHEMISTRY METHOD 08/24/2024 8:11 AM [facility] Comment:Calculation based on the Chronic Kidney Disease Epidemiology Collaboration (CKD-EPI) equation refit without adjustment for race. BUN/Creatinine Ratio 30.7 LAB CHEMISTRY METHOD 08/24/2024 8:11 AM [facility] Calcium 9.8 8.5 - 10.5 mg/dL LAB CHEMISTRY METHOD 08/24/2024 8:11 AM [facility] Blood Venous blood specimen / Unknown Venipuncture / Unknown 08/24/2024 6:37 AM EST 08/24/2024 7:04 AM EST Rhonda Rogers MD LAB BLOOD ORDERABLES Final Resu lt [facility] [address] [place] [address], [place] [phone] * Cervical Cancer Screening: HPV (12/20/2012) Pathologist [facility] Cervical Cancer Screening: HPV no interpretation , abstracted Historical Provider HEALTH MAINTENANCE Final Result from Last 3 Months or Most Recently Relevant to Health Maintenance [place] [address] [place] [address] Advance Directives * Full Code - Confirmed [...] currently active code status orders. Care Teams Electric Tape Slitter Relationship Specialty Start Date End Date Yadi Hogan DO [facility] [address] [place] [phone] PCP - General Internal Medicine 09/17/24
== END 2025-07-31 09:59 | disposition home or self-care (01) ==
LOC: HO.BBR 09:58
PROVIDERS: PCP Family Medicine; Visit Provider Internal Medicine
DX: D75.1 Secondary polycythemia (principal)
CPT/HCPCS: 85018; 99195